=== PATIENT | male | born 1945 | race Caucasian/White ===

== ENCOUNTER 2022-01-20 15:37 | Emergency (ER) | payer MEDICARE, BC, SELFPAY ==
--- NOTE | ~2022-01-20 | CT_ITS ---
EXAMINATION: CT abdomen pelvis w con EXAM DATE: 01/20/2022 20:13 INDICATION: abd pain, constipation, r/o obst/divertic. History of liver transplant. TECHNIQUE: Spiral CT of the abdomen and pelvis was performed following intravenous injection of 100 m L Omnipaque 350. Axial, coronal and sagittal images of the abdomen and pelvis were reviewed. The do se-length product (DLP) for this examination was 1111.69 mGy-cm. The exposure was tailored according to patient size (auto mA exposure control), and iterative reconstruction (ASIR) was used as addition al dose reduction technique. Comparison is made to prior examination from 04/03/2017. FINDINGS: Surgical material surrounding the IVC, reportedly patient has had interval liver transplan t. Previous liver lesion and nodularity no longer present. Liver, spleen, pancreas and adrenal glands are unremarkable. Small nodule of Cholecystectomy.Portal and splenic veins are patent. Kidneys enha nce symmetrically. There is no hydronephrosis. Liver lesions consistent with cysts. There is a 9 mm left mid calyceal stone. Mild prostatomegaly. Small bilateral inguinal fat-containing hernias. The bladder is unremarkable. There is no retroperitoneal or pelvic lymphadenopathy. There is mild scat tered arteriosclerotic disease. The appendix is normal. The stomach and small bowel are unremarkable. There is rectosigmoid colonic fluid and wall edema, mild inflammation in the presacral fat. Appearance is consistent with colitis. No free intraperitoneal gas. The heart is normal in size. There are no pericardial or pleural effu sions. The lung bases are unremarkable. There are no osteoblastic or osteolytic lesions identified. IMPRESSION: 1. Rectosigmoid colonic colitis. Diarrhea. Favor infectious etiology given patent LI and SMA. 2. Surgical changes consistent with interval liver transplant. Reviewed, dictated and finalized at location G. IMPRESSION: 1. Rectosigmoid colonic colitis. Diarrhea. Favor infectious etiology given pat ent LI and SMA. 2. Surgical changes consistent with interval liver transplant.
[2022-01-20 16:05] VITALS: BP 153/77; PULSE 97; RESP 18; TEMP 37.1; O2SAT 99
[2022-01-20 17:55] VITALS: O2SAT 100
[2022-01-20 17:56] VITALS: BP 184/84
[2022-01-20 18:28] LABS: Basophils Percent Auto 0.2 % (0.2-1.2); Hematocrit 46.5 % (42.0-52.0); Immature Granulocyte Absolute 0.06 K/mm3 (0.00-0.031); Immature Granulocyte Percent A 0.4 % (0-0.5); Lymphocytes Absolute Auto 1.65 K/mm3 (0.9-3.2); Lymphocytes Percent Auto 10.1 % (18.3-44.2); Mean Corpuscular HGB Conc 34.4 g/dl (32-36); Mean Corpuscular Hemoglobin 30.7 pg (26-34); Mean Corpuscular Volume 89.1 fl (80-100); Mean Platelet Volume 8.7 fl (7.4-10.4); Monocytes Absolute Auto 0.9 K/mm3 (0.1-0.6); Monocytes Percent Auto 5.5 % (2.6-8.5); Neutrophils Absolute Auto 13.7 K/mm3 (1.3-6.7); Neutrophils Percent Auto 83.8 % (45.5-73.1); Platelet Count Result 220 k/mm3 (150-375); Red Blood Count 5.22 M/mm3 (4.6-6.20); Red Cell Distribution Width 13.2 % (11.5-14.5); White Blood Count 16.3 K/mm3 (4.5-10.0)
[2022-01-20 18:40] LABS: Alanine Aminotransferase 31 U/L (4-50); Albumin Level 5.1 g/dL (3.5-5.1); Alkaline Phosphatase 84 U/L (38-126); Anion Gap 11 mmol/L (8-16); Aspartate Amino Transferase 38 U/L (17-59); Bilirubin,Total 0.5 mg/dL (0.2-1.3); Blood Urea Nitrogen 21 mg/dL (9-20); Calcium 9.8 mg/dL (8.4-10.2); Carbon Dioxide 28 mmol/L (22-30); Chloride 99 mmol/L (98-107); Estimated CRCL calculation 61 ml/min; Estimated Glomerular Filt Rate > 60; Glucose 194 mg/dL (65-110); Lipase 96 U/L (23-300); Potassium 4.6 mmol/L (3.4-5.0); Sodium 138 mmol/L (137-145)
--- NOTE | 2022-01-20 19:26 | ED.ABDPAIN ---
HPI - Abdominal Pain General Chief Complaint: Abdominal Pain Stated Complaint: abd spasms, n/v Time Seen by Provider: 01/20/22 18:48 Source: patient Mode of arrival: ambulatory Limitations: no limitations History of Present Illness HPI narrative: Patient 76-year-old male who presents to the ED with report of constipation and diarrhea. Patient reports he is typically fairly regular with his bowel movements. He does take MiraLAX 3-4 times a week and also occasionally takes stool softeners. His last bowel movement was 2 days ago. This morning, he felt like he had to have a bowel movement, but was unable to pass any stool. He states he attempted to have a bowel movement for approximately 4 hours. He was able to eventually pass a small amount of loose stool, and denied any pain with this. He then had a few episodes of diarrhea. He did notice a few drops of bright red blood in the toilet after straining. No blood in the stool. No melena. He does have a history of internal hemorrhoids years ago. Patient denies any significant abdominal pain but does report having painful 'spasms' in his left-sided abdomen radiating across his lower abdomen. He has not taken anything for the pain. No fever, chills, nausea, vomiting, chest pain, shortness of breath, urinary symptoms, recent sick contacts. Patient has a history of liver transplant. He takes tacrolimus. Related Data Home Medications Medication Instructions Recorded Confirmed aspirin 81 mg tablet,delayed 81 mg PO DAILY 09/26/19 10/17/21 release multivitamin 1 tablet PO DAILY 09/26/19 10/17/21 peg 400-propylene glycol (PF) 0.4 1 drop EACH EYE QID PRN 09/26/19 10/17/21 %-0.3 % eye drops in a dropperette tacrolimus 1 mg capsule, 3 mg PO Q12H cap 03/28/20 10/17/21 immediate-release Allergies Allergy/AdvReac Type Severity Reaction Status Date / Time albuterol Allergy Mild Nervousness Verified 01/20/22 18:14 Review of Systems Review of Systems: CONSTITUTIONAL: Denies fever, chills, or sweats. CARDIOVASCULAR: Denies chest pain. RESPIRATORY: Denies cough or dyspnea. GASTROINTESTINAL: Reports constipation, diarrhea, drops of bright red blood, spasms in L sided abd/across lower abdomen. Denies nausea, vomiting, blood in stool, melena. GENITOURINARY: Denies dysuria or hematuria. MUSCULOSKELETAL: Denies back pain. NEUROLOGIC: Denies headache, numbness, or weakness. All systems reviewed & are unremarkable except as noted in HPI and below PMFSH Past Medical History Medical History (Updated 01/21/22 @ 02:32 by Donna Moreira PA-C) Gastro-esophageal reflux disease without esophagitis Gout Hyperlipidemia Hypertension Hypothyroidism Surgical History Surgical History Status post liver transplantation Family History Family History Sibling Hypertension Patient's brother is in good health Family history of alcoholism Family history of seizure disorder Mother Patient's mother is Father Patient's father is Other Diabetes mellitus Family history of arthritis Family history of cardiovascular disease Family history of kidney disease Social History Social History (Updated 01/21/22 @ 02:25 by Donna Moreira PA-C) Smoking status: Never smoker Second hand tobacco smoke exposure: No Alcohol intake: never Drinks per week: 1 Substance use: never Exam Narrative: GENERAL: Well appearing, well-nourished, non-toxic, in no acute distress. HEAD: Normocephalic, atraumatic. NECK: Supple. No adenopathy, no masses. RESPIRATORY: Airway patent, respirations nonlabored. Clear to auscultation bilaterally, no rales, rhonchi, wheezing. CARDIOVASCULAR: Regular rate and rhythm without murmurs, rubs, or gallops. Peripheral pulses 2+ and equal bilaterally. ABDOMINAL: Soft, mild tenderness to palpation in LUQ, nondistended,
[2022-01-20 20:17] LABS: Add Urine Microscopic? YES; Appearance Urine Clear (Clear); Bacteria Urine Trace /hpf; Bilirubin Urine Negative (Negative); Blood Urine Negative (Negative); Color Urine Yellow (Yellow); Glucose Urine UA Negative (Negative); Ketones Urine Negative (Negative); Leukocyte Esterase Ur Trace LEU/UL (Negative); Mucus Urine Rare /lpf; Nitrate Urine Negative (Negative); Protein Urine Negative (Negative); RBC Urine 0-2 /hpf (0-2); Squamous Epithelial Cell Urine Rare /hpf (Few); Urobilinogen Urine Negative mg/dL (<2.0)
[2022-01-20 21:30] VITALS: BP 176/73; PULSE 78; RESP 16; O2SAT 98
[2022-01-20 21:40] LABS: Lactic Acid Reflex 1.1 mmol/L (0.7-2.1)
[2022-01-20 21:55] VITALS: PULSE 78; RESP 17; O2SAT 99
[2022-01-20 21:56] VITALS: BP 190/83; PULSE 78; RESP 16; O2SAT 99
== END 2022-01-20 22:07 | disposition home or self-care (01) ==
PROVIDERS: Physician Assistant; Emergency Provider Emergency Medicine; PCP Internal Medicine
DX: K52.9 Noninfective gastroenteritis and colitis, unspecified (principal); E78.5 Hyperlipidemia, unspecified; I10 Essential (primary) hypertension; E03.9 Hypothyroidism, unspecified; M10.9 Gout, unspecified; Z94.4 Liver transplant status; Z79.82 Long term (current) use of aspirin
CPT/HCPCS: 36415; 74177; 80053; 81001; 83605; 83690; 85025; 96374; 99284; J0696; Q9967

== ENCOUNTER 2022-04-24 00:23 | Day surgery (SDC) | payer MEDICARE, BC, SELFPAY ==
[2022-04-07 13:48] VITALS: BMI 31.1
--- NOTE | 2022-04-23 13:23 | WPDANESEPPF ---
Anes - Initial Pre Proc Eval Procedure: Operation Date: 04/24/22 08:00 Proposed Procedures p Colonoscopy - Ronny Stewart MD Date/Time: 04/23/22 13:23 Surgeon: Ronny Stewart MD Pre Op Diagnosis: colitis, hx of colon polyps Patient Data Age: 77 Gender: M Height: 1.75 m Weight: 95.5 kg Allergies Allergy/AdvReac Type Severity Reaction Status Date / Time albuterol Allergy Mild Nervousness Verified 04/24/22 06:48 Home Medications Medication Instructions Recorded Confirmed Type aspirin 81 mg tablet,delayed 81 mg PO DAILY 09/26/19 04/24/22 History release (Adult Low Dose Aspirin) multivitamin (Multiple Vitamins 1 tablet PO DAILY 09/26/19 04/24/22 History tablet) peg 400-propylene glycol (PF) 0.4 1 drop ophthalmic (eye) QID PRN 09/26/19 04/24/22 History %-0.3 % eye drops in a dropperette Itching (Systane (PF)) tacrolimus 1 mg capsule, 1 mg PO TID 03/28/20 04/24/22 History immediate-release allopurinol 300 mg tablet 300 mg PO DAILY #90 tabs 10/08/21 04/24/22 Rx ezetimibe 10 mg tablet 10 mg PO DAILY #90 tabs 10/08/21 04/24/22 Rx levothyroxine 112 mcg tablet 112 mcg PO DAILY #90 tabs 10/08/21 04/24/22 Rx lovastatin 20 mg tablet 20 mg PO QPM #90 tabs 10/08/21 04/24/22 Rx nifedipine 60 mg tablet,extended 60 mg PO DAILY #90 tabs 01/07/22 04/24/22 Rx release sodium sul 1.479 gram-potas ch See Rx Instructions PO PER PKG DIR 03/19/22 04/24/22 Rx 0.188 gram-magnes sul 0.225 gram #24 tabs tablet (Sutab) Patient hx anesthesia problems: none Family hx anesthesia problems: none Results Review: All pre-operative results and documents have been reviewed as part of the pre-operative evaluation. [facility] Past Medical History Medical History (Updated 04/23/22 @ 15:02 by Ronny Stewart MD) Abnormal CT scan Constipation Gastro-esophageal reflux disease without esophagitis Gout Hyperlipidemia Hypertension Hypothyroidism Surgical History Surgical History Status post liver transplantation Family History Family History Sibling Hypertension Patient's brother is in good health Family history of alcoholism Family history of seizure disorder Mother Patient's mother is Father Patient's father is Other Diabetes mellitus Family history of arthritis Family history of cardiovascular disease Family history of kidney disease Social History Social History Smoking status: Never smoker Second hand tobacco smoke exposure: No Alcohol intake: current Drinks per week: 14 Substance use: never Living arrangements: alone Spiritual care concerns: No Anes - Eval Final PreProcedure Day of Procedure 04/23/22 13:23 Patient weight: obese Heart: regular rate and rhythm Lungs: clear to auscultation Airway: Mallampati scale class II Neurological: alert and oriented Last oral intake: >/= 8 hours ASA classification: III Emergent: no Anesthetic plan: proceed Anesthesia type and monitoring: general GIVS and standard monitoring Results Review: All pre-operative results and documents have been reviewed as part of the pre-operative evaluation. Informed Consent: The patient's anesthetic plan and its attendant risks and benefits were discussed with the patient/family/POA. Questions were solicited and answers provided to the satisfaction of the patient/family/POA.
--- NOTE | 2022-04-23 15:02 | PM.HPGS ---
History of Present Illness History of Present Illness Consent: Risks, benefits, and alternatives have been discussed and questions answered. Patient agrees to proceed with procedure. Chief complaint: colitis, hx of colon polyps Narrative: Zaki Selby is a 77 year old male Referred for colon cancer screening. He has a history of polyps. Review of Systems Review of Systems: All systems reviewed & are unremarkable except as noted in HPI and below PMFSH Past Medical History Medical History (Updated 04/23/22 @ 15:02 by Ronny Stewart MD) Abnormal CT scan Constipation Gastro-esophageal reflux disease without esophagitis Gout Hyperlipidemia Hypertension Hypothyroidism Surgical History Surgical History Status post liver transplantation Family History Family History Sibling Hypertension Patient's brother is in good health Family history of alcoholism Family history of seizure disorder Mother Patient's mother is Father Patient's father is Other Diabetes mellitus Family history of arthritis Family history of cardiovascular disease Family history of kidney disease Social History Social History Smoking status: Never smoker Second hand tobacco smoke exposure: No Alcohol intake: current Drinks per week: 14 Substance use: never Living arrangements: alone Spiritual care concerns: No Meds Home Medications and Allergies Home Medications Medication Instructions Recorded Confirmed Type aspirin 81 mg tablet,delayed 81 mg PO DAILY 09/26/19 04/24/22 History release (Adult Low Dose Aspirin) multivitamin (Multiple Vitamins 1 tablet PO DAILY 09/26/19 04/24/22 History tablet) peg 400-propylene glycol (PF) 0.4 1 drop ophthalmic (eye) QID PRN 09/26/19 04/24/22 History %-0.3 % eye drops in a dropperette Itching (Systane (PF)) tacrolimus 1 mg capsule, 1 mg PO TID 03/28/20 04/24/22 History immediate-release allopurinol 300 mg tablet 300 mg PO DAILY #90 tabs 10/08/21 04/24/22 Rx ezetimibe 10 mg tablet 10 mg PO DAILY #90 tabs 10/08/21 04/24/22 Rx levothyroxine 112 mcg tablet 112 mcg PO DAILY #90 tabs 12/07/21 06/23/22 Rx lovastatin 20 mg tablet 20 mg PO QPM #90 tabs 10/08/21 04/24/22 Rx nifedipine 60 mg tablet,extended 60 mg PO DAILY #90 tabs 01/07/22 04/24/22 Rx release sodium sul 1.479 gram-potas ch See Rx Instructions PO PER PKG DIR 03/19/22 04/24/22 Rx 0.188 gram-magnes sul 0.225 gram #24 tabs tablet (Sutab) Allergies Allergy/AdvReac Type Severity Reaction Status Date / Time albuterol Allergy Mild Nervousness Verified 04/24/22 06:48 Exam Resp: Auscultation: clear to auscultation bilaterally Cardio: Rate: regular rate Rhythm: regular rhythm GI: GI Palp: Yes Soft to palpation and No Tenderness to palpation present (GI) Assessment and Plan Assessment and plan (1) Colon cancer screening: Code(s): Z12.11 - Encounter for screening for malignant neoplasm of colon Status: Acute Assessment and Plan: Colonoscopy with possible biopsy or polypectomy or cautery or injection of substances.
[2022-04-24 06:49] VITALS: BP 173/83; PULSE 67; RESP 16; TEMP 36.3; O2SAT 99
[2022-04-24] MEDS: LACTATED RINGERS 1,000 ML 150 ML IV CONT (07:01)
[2022-04-24 08:16] VITALS: BP 125/74; PULSE 60; RESP 18; O2SAT 97
[2022-04-24 08:26] VITALS: BP 132/78; PULSE 61; RESP 15; O2SAT 98
[2022-04-24 08:36] VITALS: BP 137/81; PULSE 61; RESP 20; O2SAT 100
== END 2022-04-24 08:44 | disposition home or self-care (01) ==
PROVIDERS: PCP Internal Medicine; Visit Provider Internal Medicine Gastroenterology
PROC: 0DJD8ZZ Inspection of Lower Intestinal Tract, Via Natural or Artificial Opening Endoscopic (ICD-10-PCS; CPT 45378; principal; 2022-04-24 08:00)
DX: Z12.11 Encounter for screening for malignant neoplasm of colon (principal); K57.30 Diverticulosis of large intestine without perforation or abscess without bleeding; K21.9 Gastro-esophageal reflux disease without esophagitis; Z86.010 Personal history of colon polyps; Z87.19 Personal history of other diseases of the digestive system; M10.9 Gout, unspecified; E78.5 Hyperlipidemia, unspecified; E03.9 Hypothyroidism, unspecified; I10 Essential (primary) hypertension; Z94.4 Liver transplant status; Z79.82 Long term (current) use of aspirin; E66.9 Obesity, unspecified; Z68.31 Body mass index [BMI] 31.0-31.9, adult
CPT/HCPCS: G0105; J2704; J7120

== ENCOUNTER 2023-04-13 12:25 | Outpatient (CLI) | payer MEDICARE, BC, SELFPAY ==
--- NOTE | 2023-04-13 12:39 | ECG_ITS ---
Measurements Intervals [employer] Rate: 65 P: -10 MO: 290 QRS: -8 QRSD: 89 T: 16 QT: 391 QTc: 407 Interpretive Statements SINUS RHYTHM WITH FIRST DEGREE AV BLOCK BASELINE ARTIFACT BORDERLINE ECG NO PREVIOUS ECG AVAILABLE FOR COMPARISON Electronically Signed On 04-13-2023 17:14:53 CDT by Bruce Truong M.D.
[2023-04-13 13:24] LABS: Prothrombin Time 13.3 Seconds (11.1-14.7)
== END 2023-04-13 12:26 | disposition home or self-care (01) ==
PROVIDERS: PCP Internal Medicine; Visit Provider Urology
DX: Z01.812 Encounter for preprocedural laboratory examination (principal); N20.0 Calculus of kidney; I10 Essential (primary) hypertension; I44.0 Atrioventricular block, first degree
CPT/HCPCS: 36415; 85610; 85730; 87086; 93005

== ENCOUNTER 2023-04-17 00:43 | Day surgery (SDC) | payer MEDICARE, BC, SELFPAY ==
[2023-04-10 12:30] VITALS: BMI 30.8
--- NOTE | 2023-04-10 12:57 | PC.NURSE ---
Report to the Outpatient Waiting Room, entrance under the green pavilion located off [facility], at time __6:00AM on date ___04/17/23____. Planned Procedure Time: _7:30AM . Time changes happen often and if your time is changed the preop area will call you the afternoon before. - You and your visitor will be asked to self-screen and do not enter if you have any COVID symptoms. - A mask is optional within the hospital at this time. Patients may have clear liquids (water, carbonated beverages, clear teas, apple juice) until 3 hours prior to surgery with a maximum of 20 ounces. - No food from midnight until time of surgery. Take the following medications with a SIP of water the morning of surgery: _LEVOTHYROXINE, NIFEDIPINE, TACROLIMUS AND HYDROCODONE IS NEEDED. DO NOT STOP ANY OF YOUR OTHER PRESCRIPTION MEDICATIONS PRIOR TO SURGERY ?EXCEPT THE FOLLOWING Medications to discontinue per physician __HOLD ASPIRIN 7 DAYS PRE-OP Date to take last dose___04/10/23 Please no make-up, nail bermudian, hairspray, perfume, deodorant, or body powder the day of surgery. No jewelry (including any body piercings) or valuables the day of surgery, leave them at home. Please take a shower or bath the night before, or the morning of, surgery with an antibacterial soap. Wear comfortable, loose fitting clothing. Children are encouraged to wear pajamas. - Jewelry must be removed prior to entering the operating room. Rings and piercings that are not removed may be cut off. - The hospital will not accept responsibility for valuables. - Please leave all valuables, including medications, at home the day of surgery. If you are going home after surgery, a licensed transporter driver must drive you home. - NO public transportation without another adult if you receive anesthesia. - We recommend that an adult stay with you for 24 hours following discharge. - We also recommend that you do not drive, make important decision, drink alcoholic beverages, or take any drugs that were not prescribed by your health care provider for at least 24 hours after your discharge time. Follow any additional instructions given to you from your surgeon. If you or anyone in your household have experienced Covid symptoms in the past week, please notify your surgeon or the nurse liaison at the phone number below for possible testing. Telephone instructions given to __PATIENT and asked if any additional questions and then verbalized understanding. Patient advised to call surgeon office or pre surgery nurse liaison [phone] if any additional questions.
[2023-04-17] VITALS (10 sets, daily range): BP systolic 107–155; BP diastolic 55–76; PULSE 64–83; RESP 10–18; TEMP 36.4–36.7; O2SAT 94–100
--- NOTE | ~2023-04-17 | XR_ITS ---
EXAMINATION: XR abdomen/kub 1V INDICATION: Left urolithiasis TECHNIQUE: Supine views of the abdomen were obtained on 2 radiographs. COMPARISON: 04/08/2023 FINDINGS: A left internal ureteral stent is in expected position. There is a 10 mm stone adjacent to the proximal aspect of the stent at the level of the left L3 transverse process. There is a 2 mm ston e right kidney. No additional urolithiasis is identified. 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 IMPRESSION: 1. Left internal ureteral stent in expected position with 10 mm stone adjacent to the proximal stent. 2. Right nephrolithiasis. Reviewed, dictated and finalized at location A.
--- NOTE | 2023-04-17 06:32 | WPDANESEPPF ---
Anes - Initial Pre Proc Eval Procedure: Operation Date: 04/17/23 07:30 Proposed Procedures p Left Extracorporeal Shock Wave Lithotripsy - Huang Nichols MD Date/Time: 04/17/23 06:32 Surgeon: Huang Nichols MD Pre Op Diagnosis: Nephrolithiasis, Lt Kidney Stone Patient Data Age: 78 Gender: M Height: 1.73 m Weight: 92 kg Allergies Allergy/AdvReac Type Severity Reaction Status Date / Time albuterol AdvReac Mild Nervousness Verified 04/17/23 06:22 Home Medications Medication Instructions Recorded Confirmed Type aspirin 81 mg tablet,delayed 81 mg PO DAILY 09/26/19 04/17/23 History release (Adult Low Dose Aspirin) multivitamin (Multiple Vitamins 1 tablet PO DAILY 09/26/19 04/17/23 History tablet) peg 400-propylene glycol (PF) 0.4 1 drop ophthalmic (eye) QID PRN 09/26/19 04/17/23 History %-0.3 % eye drops in a dropperette Itching (Systane (PF)) tacrolimus 1 mg capsule, 3 mg PO DAILY 03/28/20 04/17/23 History immediate-release ezetimibe 10 mg tablet 10 mg PO DAILY #90 tabs 03/27/23 04/17/23 Rx lovastatin 20 mg tablet 20 mg PO QPM #90 tabs 03/27/23 04/17/23 Rx metformin 500 mg tablet,extended 500 mg PO BID #60 tabs 04/03/23 04/17/23 Rx release 24 hr hydrocodone 5 mg-acetaminophen 325 1 tablet PO Q6H PRN pain #12 tabs 04/09/23 04/17/23 Rx mg tablet levothyroxine 112 mcg tablet 112 mcg PO QAM 04/10/23 04/17/23 History nifedipine 60 mg tablet,extended 60 mg PO QAM 04/10/23 04/17/23 History release Patient hx anesthesia problems: none Family hx anesthesia problems: none Results Review: All pre-operative results and documents have been reviewed as part of the pre-operative evaluation. [facility] Past Medical History Medical History Abnormal CT scan Cholecystitis Constipation DM2 (diabetes mellitus, type 2) Gastro-esophageal reflux disease without esophagitis Gout Hyperlipidemia Hypertension Hypothyroidism Surgical History Surgical History H/O cataract extraction Hx of cholecystectomy S/P blepharoplasty Status post liver transplantation Family History Family History Sibling Hypertension Patient's brother is in good health Family history of alcoholism Family history of seizure disorder Mother Patient's mother is Father Patient's father is Other Diabetes mellitus Family history of arthritis Family history of cardiovascular disease Family history of kidney disease Social History Social History Social History: the patient lives with his and has 2 children. 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 He does not smoke or drink or use illicit drugs. His is the durable power commercial litigation attorney for healthcare. Code status full code Smoking status: Never smoker Second hand tobacco smoke exposure: No Alcohol intake: current Drinks per week: 1 Substance use: never Substance use type: painkillers Lack of Transportation: No Lack of Food: Never True Current Housing: Decline to Answer Concerned About Future Housing: Decline to Answer Difficulty Paying Gas/Electric Bills: Decline to Answer Difficulty Paying for Meds: Decline to Answer Currently Unemployed: Decline to Answer Education: Don't Know Difficulty w/ Childcare or Family Care: Decline to Answer Living arrangements: with family Additional living arrangements comments: Spiritual care concerns: No Anes - Eval Final PreProcedure Day of Procedure 04/17/23 06:32 Patient weight: obese Heart: regular rate and rhythm Lungs: clear to auscultation Airway: Mallampati scale class II Neurological: alert and oriented Last oral intake: >/= 8
[2023-04-17] MEDS: LACTATED RINGERS 1,000 ML 30 ML IV CONT ×2 (06:56→08:41)
[2023-04-17 06:59] LABS: Glucose Point of Care 139 mg/dl (65-105)
--- NOTE | 2023-04-17 07:14 | WPDHPUPDATE1 ---
History and Physical Update Update Date/Time: 04/17/23 07:14 History and Physical has been reviewed, including an updated exam of the patient. There are NO changes in the patient's condition. Risks, benefits, and alternatives have been discussed and questions answered. Patient agrees to proceed with procedure. Proceed with left ureteral eswl
[2023-04-17] MEDS: ceFAZolin 2 GM/D5W 50 ML 2 GM/50 ML BAG IVPB (07:33)
--- NOTE | 2023-04-17 08:19 | W.PM.PROC2 ---
Procedure Note - Detailed Date of Procedure 04/17/23 Pre-op Diagnosis Nephrolithiasis, Lt Kidney Stone Post-op Diagnosis Same Procedure Performed Lithotripsy of left proximal ureteral /UPJ stone Surgeon Huang Nichols MD Anesthesia General Description of Procedure Patient is taken to the operative suite correctly identified. Once anesthesia was obtained the stone was localized in both planes. Three thousand shocks were given the stone. Patient tolerated procedure well without complications taken recovery stable condition. It does appear to be somewhat of a harder stone. Will have to see how he does postoperatively. Patient is taken recovery stable condition. This completes sedation. Please send a copy of my office Estimated Blood Loss 0 Drains No Packing No Pathology None sent Complications No immediate complications Condition Stable Disposition PACU
[2023-04-17 08:45] LABS: Glucose Point of Care 133 mg/dl (65-105)
== END 2023-04-17 11:25 | disposition home or self-care (01) ==
PROVIDERS: PCP Internal Medicine; Visit Provider Urology
PROC: (CPT 50590; principal; 2023-04-17 07:30)
DX: N20.1 Calculus of ureter (principal); E11.9 Type 2 diabetes mellitus without complications; I10 Essential (primary) hypertension; E03.9 Hypothyroidism, unspecified; M10.9 Gout, unspecified; K21.9 Gastro-esophageal reflux disease without esophagitis; Z94.4 Liver transplant status; Z79.82 Long term (current) use of aspirin; Z79.621 Long term (current) use of calcineurin inhibitor; Z79.84 Long term (current) use of oral hypoglycemic drugs; Z79.891 Long term (current) use of opiate analgesic; E66.9 Obesity, unspecified; Z68.30 Body mass index [BMI] 30.0-30.9, adult
CPT/HCPCS: 50590; 74018; 82948; J0690; J1100; J2405; J2704; J3010; J7120

== ENCOUNTER 2023-04-22 10:17 | Outpatient (CLI) | payer MEDICARE, BC, SELFPAY ==
--- NOTE | ~2023-04-22 | XR_ITS ---
XR abdomen/kub 1V 04/22/2023 10:36 Indication: Left ureteral stone Procedure: KUB Comparison: 04/17/2023 Findings: Bowel gas pattern nonobstructive. There is a left internal ureteral stent in expected posit ion. There is a persistent 12 mm stone in the proximal aspect of the left ureter at the L3 level [place] to the stent. No acute osseous abnormality. No foreign bodies. There is osteoarthritis of the hi ps. Impression: 1: Left ureteral stone at the L3 level measuring 12 mm. Reviewed, dictated and finalized at location [] Impression: 1: Left ureteral stone at the L3 level measuring 12 mm.
== END 2023-04-22 10:18 | disposition home or self-care (01) ==
PROVIDERS: PCP Internal Medicine; Visit Provider Urology
DX: N20.1 Calculus of ureter (principal)
CPT/HCPCS: 74018

== ENCOUNTER 2023-04-24 00:38 | Day surgery (SDC) | payer MEDICARE, BC, SELFPAY ==
--- NOTE | 2023-04-23 15:56 | PC.NURSE ---
Report to the Outpatient Waiting Room, entrance under the green pavilion located off [facility], at time __1130 on date _04/24/23 . Planned Procedure Time: _1330 . Time changes happen often and if your time is changed the preop area will call you the afternoon before. - You and your visitor will be asked to self-screen and do not enter if you have any COVID symptoms. - A mask is optional within the hospital at this time. Patients may have clear liquids (water, carbonated beverages, clear teas, apple juice) until 3 hours prior to surgery with a maximum of 20 ounces. - No food from midnight until time of surgery - Infants may have breast milk until 4 hours before surgery, infant formula 6 hours prior to surgery. - Children will be allowed to drink immediately following surgery. If applicable, please bring a bottle or sippy cup to assist with drinking. Juice, water, soda, and popsicles are readily available. For infants on formula, please bring formula the day of surgery. Pacifiers are allowed. Take the following medications with a SIP of water the morning of surgery: ___LEVOTHYROXINE, ,NIFEDIPINE_,TACROLIMUS,HYDROCODONE IF NEEDED DO NOT STOP ANY OF YOUR OTHER PRESCRIPTION MEDICATIONS PRIOR TO SURGERY ?EXCEPT THE FOLLOWING Medications to discontinue per physician PT STATES HAS NOT HAD ASPIRIN FOR SEVERAL WKS Date to take last dose Please no make-up, nail togolese, hairspray, perfume, deodorant, or body powder the day of surgery. No jewelry (including any body piercings) or valuables the day of surgery, leave them at home. Please take a shower or bath the night before, or the morning of, surgery with an antibacterial soap. Wear comfortable, loose fitting clothing. Children are encouraged to wear pajamas. - Jewelry must be removed prior to entering the operating room. Rings and piercings that are not removed may be cut off. - The hospital will not accept responsibility for valuables. - Please leave all valuables, including medications, at home the day of surgery. If you are going home after surgery, a licensed compressed air pile driver operator must drive you home. - NO public transportation without another adult if you receive anesthesia. - We recommend that an adult stay with you for 24 hours following discharge. - We also recommend that you do not drive, make important decision, drink alcoholic beverages, or take any drugs that were not prescribed by your health care provider for at least 24 hours after your discharge time. For Pediatric surgeries, we recommend two adults accompany the child home. Follow any additional instructions given to you from your surgeon. If you or anyone in your household have experienced Covid symptoms in the past week, please notify your surgeon or the nurse liaison at the phone number below for possible testing. Telephone instructions given to ___PATIENT and asked if any additional questions and then verbalized understanding. Patient advised to call surgeon office or pre surgery nurse liaison [phone] if any additional questions.
[2023-04-23 16:07] VITALS: BMI 29.2
[2023-04-24] VITALS (8 sets, daily range): BP systolic 130–175; BP diastolic 51–84; PULSE 18–77; RESP 13–68; TEMP 36.7–36.9; O2SAT 92–99; BMI 29.5
--- NOTE | ~2023-04-24 | XR_ITS ---
EXAMINATION: XR retrograde pyelo w/stent LT DATE: 04/24/2023 16:10 CDT INDICATION: L side special w/ stone extraction, stent placement . TECHNIQUE: 4 fluoroscopic images of the abdomen and pelvis were obtained during left retrograde pyelo graphy with stone extraction and stent placement performed by the surgeon. I was not present in the o perating room. Fluoroscopy exposure time was 14.1 seconds. DAP [id number] mGym2. COMPARISON: X-ray abdomen 04/22/2023 FINDINGS: A left nephroureteral stent is present in the copier field service technician view. The stent is removed, followed by wire acce ss to the upper collecting system. Stent replacement, in good position. IMPRESSION: Fluoroscopic documentation of left retrograde pyelography with stone extraction and stent placement. Please refer to the operative note for complete procedural details . Reviewed, dictated and finalized at location K. IMPRESSION: Fluoroscopic documentation of left retrograde pyelography with stone extraction and stent placement. Please refer to the operative note for complete procedura l details .
[2023-04-24] MEDS: LACTATED RINGERS 1,000 ML 30 ML IV CONT (12:30)
--- NOTE | 2023-04-24 12:45 | SUR.PREOP ---
1245- Patient and family notified of delayed start time. All questions and concerns answered.
[2023-04-24 13:00] LABS: Glucose Point of Care 130 mg/dl (65-105)
--- NOTE | 2023-04-24 14:07 | WPDANESEPPF ---
Anes - Initial Pre Proc Eval Procedure: Operation Date: 04/24/23 13:30 Proposed Procedures p Cystoscopy, Left Retrograde Pyelogram, Possible Left Stone Extraction, Possible Left Stent Placement, Possible Holmium Laser Procedure - Huang Nichols MD Date/Time: 04/24/23 14:07 Surgeon: Huang Nichols MD Pre Op Diagnosis: left renal stone Patient Data Age: 78 Gender: M Height: 1.73 m Weight: 87.9 kg Last Vital Signs Temp 36.7 C 04/24/23 11:40 Pulse 18 L 04/24/23 11:40 Resp 68 H 04/24/23 11:40 BP 147/53 H 04/24/23 11:40 Pulse Ox 98 04/24/23 11:40 O2 Del Method Room Air 04/24/23 11:40 Allergies Allergy/AdvReac Type Severity Reaction Status Date / Time No Known Allergies Allergy Verified 04/24/23 13:05 Home Medications Medication Instructions Recorded Confirmed Type aspirin 81 mg tablet,delayed 81 mg PO DAILY 09/26/19 04/23/23 History release (Adult Low Dose Aspirin) multivitamin (Multiple Vitamins 1 tablet PO DAILY 09/26/19 04/24/23 History tablet) peg 400-propylene glycol (PF) 0.4 1 drop ophthalmic (eye) PRN PRN 09/26/19 04/23/23 History %-0.3 % eye drops in a dropperette Itching (Systane (PF)) tacrolimus 1 mg capsule, 3 mg PO DAILY 03/28/20 04/23/23 History immediate-release ezetimibe 10 mg tablet 10 mg PO DAILY #90 tabs 03/27/23 04/23/23 Rx lovastatin 20 mg tablet 20 mg PO QPM #90 tabs 03/27/23 04/23/23 Rx metformin 500 mg tablet,extended 500 mg PO BID #60 tabs 04/03/23 04/23/23 Rx release 24 hr hydrocodone 5 mg-acetaminophen 325 1 tablet PO Q6H PRN pain #12 tabs 04/09/23 04/24/23 Rx mg tablet levothyroxine 112 mcg tablet 112 mcg PO QAM 04/10/23 04/23/23 History nifedipine 60 mg tablet,extended 60 mg PO QAM 04/10/23 04/23/23 History release acetaminophen 500 mg capsule 500 mg PO Q6H PRN Pain 04/23/23 04/23/23 History mirabegron 25 mg tablet,extended 25 mg PO DAILY 04/23/23 04/23/23 History release 24 hr (Myrbetriq) Laboratory Tests 04/24/23 12:54 POC Capillary Glucose 130 H mg/dl (65-105) Patient hx anesthesia problems: none Family hx anesthesia problems: none Results Review: All pre-operative results and documents have been reviewed as part of the pre-operative evaluation. [facility] Past Medical History Medical History Abnormal CT scan Cholecystitis Constipation DM2 (diabetes mellitus, type 2) Gastro-esophageal reflux disease without esophagitis Gout Hyperlipidemia Hypertension Hypothyroidism Surgical History Surgical History H/O cataract extraction Hx of cholecystectomy S/P blepharoplasty Status post liver transplantation Family History Family History Sibling Hypertension Patient's brother is in good health Family history of alcoholism Family history of seizure disorder Mother Patient's mother is Father Patient's father is Other Diabetes mellitus Family history of arthritis Family history of cardiovascular disease Family history of kidney disease Social History Social History Social History: the patient lives with his and has 2 children. The patient retired from the [employer] he worked for the [employer]. He does not smoke or drink or use illicit drugs. 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 Code status full code Smoking status: Never smoker Second hand tobacco smoke exposure: No Alcohol intake: current Drinks per week: 1 Substance use: never Substance use type: painkillers Lack of Transportation: No Lack of Food: Never True Current Housing: Decline to Answer Concerned About Future Housing: Decline to Answer Difficulty Paying Gas/Electric Bills:
--- NOTE | 2023-04-24 14:23 | WPDHPUPDATE1 ---
History and Physical Update Update Date/Time: 04/24/23 14:23 History and Physical has been reviewed, including an updated exam of the patient. There are NO changes in the patient's condition. Risks, benefits, and alternatives have been discussed and questions answered. Patient agrees to proceed with procedure. Proceed with cystoscopy, left retrograde pyelogram, left ureteroscopy with holmium laser, stone extraction, possible stent exchange
--- NOTE | 2023-04-24 14:46 | SUR.PREOP ---
1601- Call to Dr. Jamison patient requesting pain medication. Per Dr. Jamison can given 25MCG fentanyl IVP and can repeat dose once if needed.
[2023-04-24] MEDS: fentaNYL CITRATE INJ (*CRX) 100 MCG/2 ML VIAL 25 MCG IV PUSH ×3 (14:55→17:20)
[2023-04-24] MEDS: ceFAZolin 2 GM/D5W 50 ML 2 GM/50 ML BAG IVPB (16:17)
--- NOTE | 2023-04-24 16:46 | P.OP_ITS ---
Procedure Note - Detailed Date of Procedure 04/24/23 Pre-op Diagnosis left ureteral stone 1 cm Post-op Diagnosis Same Procedure Performed Cystoscopy, left retrograde pyelogram, left ureteroscopy with holmium laser, stone extraction, left stent exchange 4.8 Marshallese contour Surgeon Huang Nichols MD Anesthesia General Description of Procedure Patient is taken to the operative suite correctly identified. Once anesthesia was obtained was placed in dorsal lithotomy position and prepped and draped usual sterile fashion. Twenty-two Marshallese scope inserted the bladder no tumors noted. The left ureteral stent was visualized. Was brought out the meatus but a could not pass a wire through it. A guidewire was then passed by the stone in the proximal ureter. Ureteral access sheath was placed mini flexible ureteral scope was inserted into the orifice. Stone was visualized. Using a 200 micron fiber the stone was fragmented in multiple small pieces. The largest of which were retrieved and sent for analysis. Reinspection revealed no residual stones in the ureter. Pyelogram was then performed to confirm placement of the stent. 4.8 Marshallese contour stent was placed with the proximal end coiled in the left renal pelvis and the distal in the bladder. Bladder was drained. 2% viscous lidocaine was inserted into urethra patient is taken recovery stable condition. Will follow-up in 7-10 days for a stent removal in the office with cysto. this complete dictation. please send a copy to my office Drains Yes Packing No Pathology Yes Complications No immediate complications Condition Stable Disposition PACU
[2023-04-24] MEDS: hydrALAZINE HCL 20 MG/ML VIAL 5 MG IV PUSH (17:27)
[2023-04-24] MEDS: oxyCODONE HCL (*CRX) 5 MG TAB IR PO (18:09)
== END 2023-04-24 18:59 | disposition home or self-care (01) ==
PROVIDERS: PCP Internal Medicine; Visit Provider Urology
PROC: (CPT 52352; principal; 2023-04-24 13:30)
DX: N20.1 Calculus of ureter (principal); I10 Essential (primary) hypertension; E78.5 Hyperlipidemia, unspecified; E11.9 Type 2 diabetes mellitus without complications; M10.9 Gout, unspecified; E03.9 Hypothyroidism, unspecified; K21.9 Gastro-esophageal reflux disease without esophagitis; Z94.4 Liver transplant status; Z79.82 Long term (current) use of aspirin; Z79.84 Long term (current) use of oral hypoglycemic drugs
CPT/HCPCS: 52356; 74420; 82365; 82948; 88300; A9270; C1769; C1894; C2617; J0360; J0690; J1100; J2405; J2704; J3010; J7120; Q9966

== ENCOUNTER 2023-04-29 09:57 | Outpatient (CLI) | payer MEDICARE, BC, SELFPAY ==
--- NOTE | ~2023-04-29 | XR_ITS ---
EXAMINATION: XR abdomen/kub 1V INDICATION: Left ureteral stone TECHNIQUE: Supine views of the abdomen were obtained on 2 radiographs. COMPARISON: 04/22/2023 FINDINGS: A left internal ureteral stent is in expected position. There appears to been interval maritza tment of the previously described stone adjacent to the internal ureteral stent. Stone fragments nayan uring up to 6 mm are seen in the left kidney lower pole. The bowel gas pattern is normal. 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 IMPRESSION: 1. Interval treatment of the previously described left ureteral stone with stone fragments seen in th e left kidney lower pole. Reviewed, dictated and finalized at location [] IMPRESSION: 1. Interval treatment of the previously described left ureteral stone with ston e fragments seen in the left kidney lower pole.
== END 2023-04-29 09:58 | disposition home or self-care (01) ==
PROVIDERS: PCP Internal Medicine; Visit Provider Urology
DX: N20.1 Calculus of ureter (principal)
CPT/HCPCS: 74018

== ENCOUNTER 2023-12-23 11:19 | Outpatient (CLI) | payer MEDICARE, BC, SELFPAY ==
--- NOTE | ~2023-12-23 | XR_ITS ---
Supine and upright views of the abdomen Clinical history: Kidney stone COMPARISON: 04/21/2023 Findings: Bowel gas pattern is nonspecific. No evidence for obstruction or free air. Left renal stone s are similar to prior exam. Osseous structures are intact. Impression: Stable left renal stones. Reviewed, dictated and finalized at [facility]. SERVICES SPECIALIST Impression: Stable left renal stones.
== END 2023-12-23 11:20 | disposition home or self-care (01) ==
PROVIDERS: PCP Internal Medicine; Visit Provider Urology
DX: N20.0 Calculus of kidney (principal)
CPT/HCPCS: 74018

== ENCOUNTER 2025-05-08 14:10 | Outpatient (CLI) | payer MEDICARE, BC, SELFPAY ==
--- NOTE | ~2025-05-08 | XR_ITS ---
Lumbosacral Spine: AP and lateral views Clinical History: Pain Findings: The normal lordotic curve is maintained. The vertebral bodies and posterior elements are i ntact. There is mild degenerative disc change at L4-L5 and L5-S1. There is mild to moderate facet art hropathy at these levels. The sacroiliac joints are normally outlined. Probable 13 mm left lower alexis e renal stone. Impression: Otyt-zl-kcwdywts degenerative change of the lower lumbar spine, as above. Probable left nephrolithiasis, as above. Reviewed, dictated and finalized at location M. Impression: Pzlf-uc-stiprffx degenerative change of the lower lumbar spine, as above. Probable left nephrolithiasis, as above.
--- OUTSIDE RECORDS SUMMARY | 2025-05-08 14:17 | XMS_ITS | Clinical Summary ---
Author Organization [facility] Address [address], [facility] [address] [place] [address] Phone Care Team Providers Care Corporate Securities Research Analyst Name Role Phone DanialSonnyIssa L DO Primary Care Provider Barry Walsh DO Unavailable Medications polyethylene glycol (MIRALAX) Powder Use entire 255g bottle with 64oz of clear liquid as directed for colonoscopy prep. 255 g 0 7 Active Immunizations Immunization Administration Dates Next Due Covid-19, Mrna, Lnp-s, Pf, 30 Mcg/0.3 Ml Dose (P fizer) 01/14/2021,12/23/2020 Social History Tobacco Use Types Packs/Day Years Used Date Smoking Tobacco: Never Assessed Sex and Gender Information Value Date Recorded Sex Assigned at Not on file Legal Sex Male 8:53 PM CDT Gender Identity Not on file Sexual Orientation Not on file Plan of Treatment Health Maintenance Due Date Last Done Comments Hepatitis C Virus (HCV) Screening 1945 TdaP Immunization 1945 Zoster Immunization (2 of 3) 07/26/2008 05/31/2008 Respiratory Syncytial Virus (RSV) Immunization (Adult) (1 - 1-dose 75+ series) 2018 Pneumococcal Immunization (5 0+ years) (2 of 2 - PPSV23) 07/16/2021 07/16/2020 SARS-COV-2 Immunization (4 - 2024-25 season) 2024 06/20/2021, 01/14/2021, 12/23/2020 Influenza Immunization (#1) 2025 07/13/2020 DTaP/Tdap/Td Immunization Discontinued 10/16/2008 Hepatitis B Immunization Aged Out 10/16/2008 No longer eligible based on patient's age to complete this topic Pneumococcal Immunization Combined Discontinued 07/16/2020 Human Papillomavirus (HPV) Immunization Aged Out No longer eligible based on patient's age to complete this topic Meningococcal Immunization (ACWY) Aged Out No longer eligible based on patient's age to complete this topic Rotavirus Immunization Aged Out No lo nger eligible based on patient's age to complete this topic Insurance MEDICARE [facility] Care Teams Corporate Securities Research Analyst Relationship Specialty Start Date End Date Issa Barrow DO [address] [place] [address] PCP - General Internal Medicine 01/12/17 Barry Walsh DO [address] [place] [address] Consulting Physician Gastroenterology 12/24/17
--- OUTSIDE RECORDS SUMMARY | 2025-05-08 14:17 | XMS_ITS | Clinical Summary ---
Author Organization [facility] Address [address] [place] [address] Care Team Providers Care Acid Strength Inspector Name Role Phone Unavailable Primary Care Provider Unavailabl e Social History Tobacco Use Types Packs/Day Years Used Date Smoking Tobacco: Never Assessed Sex and Gender Information Value Date Recorded Sex Assigned at Not on file Legal Sex Male 5:36 PM CDT Gender Identity Not on file Sexual Orientation Not on file Plan of Treatment Health Maintenance Due Date Last Done Comments DTaP, Tdap and Td Vaccines ( 1 - Tdap) 1962 Pneumococcal Vaccine: 50+ Ye ars (1 of 1 - PCV) 1993 Zoster Vaccines (1 of 2) 1993 RSV Immunization or 60+ Years (1 - 1-dose 75+ series) 2018 COVID-19 Vaccine ( - 2023-2 5 season) 2024 Meningococcal B Vaccine Aged Out No l onger eligible based on patient's age to complete this topic Meningococcal Vaccine Aged Out No katerin verito eligible based on patient's age to complete this topic RSV Immunizations Under 20 Months Aged Out No longer eligible based on patient's age to complete this topic
== END 2025-05-08 14:11 | disposition home or self-care (01) ==
PROVIDERS: PCP Internal Medicine; Visit Provider Internal Medicine
DX: M51.369 Other intervertebral disc degeneration, lumbar region without mention of lumbar back pain or lower extremity pain (principal); M51.379 Other intervertebral disc degeneration, lumbosacral region without mention of lumbar back pain or lower extremity pain
CPT/HCPCS: 72100

== ENCOUNTER 2025-05-22 09:03 | Outpatient (CLI) | payer MEDICARE, BC, SELFPAY ==
--- NOTE | ~2025-05-22 | MR_ITS ---
EXAMINATION: MR lumbar spine wo con DATE: 05/22/2025 09:42 INDICATION: Spondylosis without myelopathy or radiculopathy TECHNIQUE: Magnetic resonance imaging (MRI) of the lumbar spine was performed without intravenous con trast. Sequences included sagittal T2-weighted FSE, sagittal T2-weighted FS FSE, sagittal T1-weighted FSE, and axial T2-weighted FSE. COMPARISON: None FINDINGS: Alignment is normal. Vertebral body heights are normal. Small Schmorl's node along the anterior super ior endplate of L4. Moderate disc height loss with fibrofatty degenerative endplate changes at L5-S1. Marrow signal is otherwise unremarkable. Mild disc height loss at T11-T12. Mild disc desiccation wit hout significant disc height loss at L1-L2 through L4-L5. The conus medullaris terminates at L1. Ther e is normal signal in the caudal spinal cord. Couple T2 hyperintense left renal cysts, the larger par tially visualized measuring at least 4.8 cm. Paravertebral soft tissues are unremarkable. The followi ng disc levels are specifically discussed: T12-L1: The disc does not extend beyond the endplate margin. There is mild left and moderate right fa cet joint osteoarthritis. There is no neural foraminal stenosis. There is no central canal stenosis. L1-L2: Disc is mildly bulging. There is mild bilateral facet joint osteoarthritis. There is mild bila teral neural foraminal stenosis. There is mild central canal stenosis. L2-L3: Disc is mildly bulging. There is hypertrophy of the ligamentum flavum. There is mild bilatera l facet joint osteoarthritis. There is mild bilateral neural foraminal stenosis. There is mild centra l canal stenosis. L3-L4: Disc is bulging. There is hypertrophy of the ligamentum flavum. There is mild bilateral facet joint osteoarthritis. There is mild bilateral neural foraminal stenosis. There is mild central canal stenosis. L4-L5: Disc is bulging with left foraminal zone annular fissure. There is hypertrophy of the ligament um flavum. There is mild left and moderate right facet joint osteoarthritis. There is mild bilateral neural foraminal stenosis. There is mild central canal stenosis. L5-S1: Disc is bulging with annular fissure. There is mild bilateral facet joint osteoarthritis. Ther e is mild bilateral neural foraminal stenosis. There is minimal central canal stenosis. IMPRESSION: 1. Mild to moderate lumbar spondylosis. Reviewed, dictated and finalized at location A.
== END 2025-05-22 09:04 | disposition home or self-care (01) ==
LOC: GOSHIMG 09:03
PROVIDERS: PCP Internal Medicine; Visit Provider Nurse Practitioner Adult Health
DX: M47.816 Spondylosis without myelopathy or radiculopathy, lumbar region (principal); M48.061 Spinal stenosis, lumbar region without neurogenic claudication; M54.9 Dorsalgia, unspecified
CPT/HCPCS: 72148

== ENCOUNTER 2025-06-16 13:42 | Outpatient (CLI) | payer MEDICARE, BC, SELFPAY ==
--- NOTE | ~2025-06-16 | XR_ITS ---
EXAM: XR abdomen/kub 1V DATE: 06/16/2025 14:06 HISTORY: Calcium kidney stone . COMPARISON: None available. FINDINGS: Clear lung bases. Surgical clips in the right upper quadrant. Normal bowel gas pattern. No organomegaly. Cluster of calcifications over the left lower pole measuring up to 10 mm. Mild lumbar degenerative disc disease. Bilateral hip osteoarthritis. Scattered pelvic enthesopathy. IMPRESSION: Left nephrolithiasis. Reviewed, dictated and finalized at location K. IMPRESSION: Left nephrolithiasis.
--- NOTE | ~2025-06-16 | CT_ITS ---
Non-contrast CT scan of the Abdomen and Pelvis Clinical indication: Kidney stone Technique: 2.5 mm axial scans were obtained through the abdomen and pelvis without intravenous or or al contrast. Dose reduction technique was used on this scan by utilizing automated exposure control a nd iterative reconstruction technique. The dose-length product (DLP) was 303.33 mGy-cm. COMPARISON: 04/08/2023 Findings: Images through the lung bases reveal no abnormalities. Right kidney unremarkable. There are nonobstructing left renal stones, largest at the lower pole nayan uring 11 mm in diameter. Multiple left renal cysts are present. No ureteral stone or hydronephrosis o n either side. Possible micronodular contour of liver. The spleen, pancreas, gallbladder, and adrenals appear normal . There is no aortic aneurysm. There is no evidence of bowel obstruction. Images through the pelvis were performed. There is no evidence of ascites or lymphadenopathy. Urinary bladder unremarkable. Prostate gland mildly enlarged. Impression: Nonobstructing left nephrolithiasis, as detailed above. Multiple left renal cysts. Questionable minimal cirrhotic change of the liver. Correlate clinically and with LFTs. Reviewed, dictated and finalized at [facility]. Impression: Nonobstructing left nephrolithiasis, as detailed above. Multiple left renal cys ts. Questionable minimal cirrhotic change of the liver. Correlate clinically and wi LFTs.
--- OUTSIDE RECORDS SUMMARY | 2025-06-16 13:47 | XMS_ITS | Encounter Summary ---
Author Organization [facility] Address [address] [place] [address] Care Team Providers Care Supervisor Dials Name Role Phone Issa Barrow MD Primary Care Provider [phone] Ruthie Quintanilla RN Unavailable [phone] Kiah Esquivel MD Unavailable [phone] Leyda Clay RN Unavailable Dorina Gayle Unavailable Unavailable Naheed Ulrich RN Unavailable Tequila Ibarra RN Unavailable Unav ailable Pramod Slaughter DO Primary Care Provider [phone] Encounter Details Date Type Department Care Team (Late st Contact Info) Description 11/09/2018 Documentation [facility] [address] [place] [address] Sara Gonzales RN Social History Tobacco Use Types Packs/Day Years Used Date Smoking Tobacco: Never Smokeless Tobacco: Never Alcohol Use Standard Drinks/Week Comments No 0 (1 standard drink = 0.6 oz pur e alcohol) Sex and Gender Information Value Date Recorded Sex Assigned at Not on file Legal Sex Male 6:43 AM GREEN END MAN Gender Identity Male 06/21/2021 8:36 AM CDT Sexual Orientation Straight 02/16/2020 5: 30 PM CDT documented as of this encounter Plan of Treatment Not on file documented as of this encounter Visit Diagnoses Not on filedocumented in this encounter Care Teams Supervisor Dials Relationship Specialty Start Date End Date Issa Barrow MD [address] [place] [address] PCP - General 03/16/18 03/16/25 Pramod Slaughter DO [address] [facility] [address] [place] [address] PCP - General Internal Medicine 03/17/25 Ruthie Quintanilla, CHARLY [address] [address] Overhead Foreman 07/06/18 Kiah Esquivel MD [address] [address] Referring Physician Gastroenterology 01/20/19 Leyda Clay RN [address] [id number] Overhead Foreman 02/22/19 Dorina Gayle Primary Oiler Bander Transplant 04/16/21 Naheed Ulrich, CHARLY Overhead Foreman Transplant 11/18/1908/13 Tequila Ibarra, senior category managerOverhead Foreman Overhead Foreman 08/13/21 documented as of this encounter
--- OUTSIDE RECORDS SUMMARY | 2025-06-16 13:47 | XMS_ITS ---
Author Organization [facility] Address [address] [place] [address] Care Team Providers Care Conservation Science Teacher Name Role Phone Kiah Esquivel MD Unavailable [phone] Dorina Gayle Unavailable Unavailable Tequila Ibarra RN Unavailable Unav ailable Pramod Slaughter DO Primary Care Provider [phone] Transplant Episode Liver Recipient [facility] ([place], [place]) - [facility] Organ Received: Liver Transplanted on 02/21/2019 Marked as Active Follow-up on 02/21/2019 Reason: Transplanted at [facility] Liver CoordinatorTequila Ibarra RN Phone: N/A Fax: N/A Email: N/A 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 Liver ([place]) Donor Information Organ ABO Source Meets Risk Criteria HLA Match Mismatches Cross Match Liver Transplanted A1 DBD No A: B: DR: Liver Donor Serology Results Anti-CMV CMV IgG: Positive EBV IgG EBV VCA IgG: Positive Anti-HBcAb HBC Total: Negative HBsAg HBsAg: Negative HBV DNA No results on file Anti-HCV HCV: Negative Anti-HIV I/II No results on file Anti-HTLV I/II HTLV: Not Done RPR/VDRL RPR: Negative EBV IgM EBV VCA IgM: Negative HBsAb HBsAb: Not Done EBNA No results on file Toxoplasma No results on file SARS CoV-2 No results on file Care Team Name Role Phone Fax Email Tequila Ibarra, CHARLY Liver Coordinator N/A N /A N/A Shani Berger RD Dietitian N/A N/A N/A Kiah Esquivel MD Referring Physician [phone] N/A Yuridia Cifuentes [employer] Torque Tester [phone] N/A N/A Events Post-Transplant Pre-Transplant Admitted: 2019 Referred: 07/01/2018 Transplanted: 02/21/2019 Evaluation began: 8 Discharged: 02/25/2019 Committee: 08/10/2018 Center waitlisted: 8
--- OUTSIDE RECORDS SUMMARY | 2025-06-16 13:47 | XMS_ITS | Clinical Summary ---
Author Organization [facility] Address [address], [facility] [address] [place] [address] Phone Care Team Providers Care Salesperson Jewelry Name Role Phone DanialSonnyIssa L DO Primary Care Provider [phone] Barry Walsh DO Unavailable [phone] Medications polyethylene glycol (MIRALAX) Powder Use entire [...] (5 0+ years) (2 of 2 - PCV20 or PCV21) 07/16/2021 07/16/2020 SARS-COV-2 Immunization (4 - season) 2024 06/20/2021, 01/14/2021, 12/23/2020 Influenza Immunization [...] age to complete this topic Insurance MEDICARE [facility] Care Teams Salesperson Jewelry Relationship Specialty Start Date End Date Issa Barrow DO [address] [place] [address] PCP - General Internal Medicine 01/12/17 Barry Walsh DO [address] [place] [address] Consulting Physician Gastroenterology 12/24/17
--- OUTSIDE RECORDS SUMMARY | 2025-06-16 13:47 | XMS_ITS | Clinical Summary ---
Author Organization [facility] Address [address] Attn: Epic Prelude ADT [place] [address] Care Team Providers Care Shredding Specialist Name Role Phone Unavailable Primary Care Provider Unavailabl e Allergies No known active allergies Medications empagliflozin (Jardiance) 10 mg tablet Take 1 Tablet (10 mg) by mouth daily in the morning. 90 Tablet 1 3 Active HYDROcodone-jules taminophen (NORCO) 5-325 mg tablet TAKE 1 OR 2 TABLETS BY MOUTH EVERY 6 HOURS NEEDED 30 Tablet 04/14/2023 4:50 PM CDT 3 Active traMADoL (ULTRAM) 50 mg tablet TAKE 1 TABLET BY MOUTH EVERY 6 HOURS FOR PAIN 20 Tablet 04/25/2023 9:41 AM CDT 3 Active clobetasoL (TEMOVATE) 0.05 % Ointment Apply to rash areas on leg twice daily for 4 weeks for flares, then use twice a week for maintenance (no face) 30 Gram 1 08/26/2023 2:20 PM CDT 3 Active tamsulosin (FLOMAX) 0.4 mg capsule Take 1 Capsule (0.4 mg) by mouth daily. 30 Capsule 12/17/2023 3:33 PM GARMENT STEAMER 4 Active imiquimod (ALDARA) 5 % Cream in Packet APPLY A THIN LAYER TO THE SCALP AT BEDTIME FOR 2 WEEKS, THEN TAKE A 2 WEEK BREAK. APPLY FOR 2 MORE WEEKS AT BEDTIME, THEN STOP. WASH OFF IN THE MORNING; RED/SCABBY REACTION IS NORMAL) 24 Packet 05/20/2024 5:38 PM CDT 4 Active azithromycin (ZITHROMAX) 250 mg tablet Take 2 tablets (500 mg) by mouth today (day 1), then take 1 tablet (250 mg) for 4 days (days 2-5). 6 Tablet 09/08/2024 5:04 PM GARMENT STEAMER 4 Active benzonatate (TESSALON) 200 mg capsule Take 1 Capsule (200 mg) by mouth 3 times daily as needed cough 30 Capsule 11/03/2024 3:00 PM GARMENT STEAMER 5 Active famotidine (PEPCID) 20 mg tablet Take 1 Tablet (20 mg) by mouth daily. 90 Tablet 1 04/03/2025 6:15 PM CDT 5 Active metFORMIN (GLUCOPHAGE XR) 500 mg Extended Release 24 hour tablet Take 1 Tablet (500 mg) by mouth 2 times daily. 180 Tablet 3 04/11/2025 2:36 PM CDT 5 Active ezetimibe (ZETIA) 10 mg tablet Take 1 Tablet (10 mg) by mouth daily. 90 Tablet 3 04/11/2025 2:36 PM CDT 5 Active levothyroxine 125 mcg tablet Take 1 Tablet (125 mcg) by mouth daily. 90 Tablet 3 04/11/2025 2:36 PM CDT 5 Active lovastatin (MEVACOR) 20 mg tablet Take 1 tablet by mouth every evening 90 Tablet 3 04/11/2025 2:36 PM CDT 5 Active NIFEdipine (ADALAT CC) 60 mg Extended Release tablet Take 1 Tablet (60 mg) by mouth daily in the morning. 90 Tablet 3 04/11/2025 2:36 PM CDT 5 Active Encounters Date Type Department Care Team Description 06/07/2025 External Device Data [facility] ABSTRACTION Provider, Abstract from Last 3 Months Social History Tobacco Use Types Packs/Day Years Used Date Smoking Tobacco: Never Assessed Sex and Gender Information Value Date Recorded Sex Assigned at Not on file Legal Sex Male 9:58 PM CDT Gender Identity Not on file Sexual Orientation Not on file Plan of Treatment Health Maintenance Due Date Last Done Comments DTAP/TDAP/TD VACCINES (1 - Tdap) 1962 PNEUMOCOCCAL VACCINE 50+ YEARS (1 of 1 - PCV) 02/20/19 93 ZOSTER VACCINE (1 of 2) 1993 RSV VACCINE (60+ or ) (1 - 1-dose 75+ series) 2018 INFLUENZA VACCINE (#1) 2025 Insurance RX [employer] (INTERNAL) [facility] Medicare Part D
--- OUTSIDE RECORDS SUMMARY | 2025-06-16 13:47 | XMS_ITS | Encounter Summary ---
Author Organization [facility] Address [address] [place] [address] Phone Care Team Providers Care Government Contracts Manager Name Role Phone Kiah Esquivel MD Primary Care Provid er Issa Barrow MD Primary Care Provider [phone] Ruthie Quintanilla RN Unavailable [phone] Kiah Esquivel MD Unavailable [phone] Leyda Clay RN Unavailable [phone] Dorina Gayle Unavailable Unavailable Naheed Ulrich RN Unavailable Tequila Ibarra RN Unavailable Unav ailable Pramod Slaughter DO Primary Care Provider [phone] Encounter Details Date Type Department Care Team (Latest Contact Info) Description 03/15/2018 Orders Only [facility] Scanning, Provider Social History Tobacco Use Types Packs/Day Years Used Date Smoking Tobacco: Never Sex and Gender Information Value Date Recorded Sex Assigned at Not on file Legal Sex Male 6:43 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 Gender Identity Male 06/21/2021 8:36 AM CDT Sexual Orientation Straight 02/16/2020 5: 30 PM CDT documented as of this encounter Plan of Treatment Not on file documented as of this encounter Procedures Procedure Name Priority Date/Time Associated Diagnosis Comments PROCEDURE - RESULT 03/15/2018 documented in this encounter Results * PROCEDURE - RESULT (03/15/2018) us Provider Scanning Final Result documented in this encounter Visit Diagnoses Not on filedocumented in this encounter Care Teams Government Contracts Manager Relationship Specialty Start Date End Date Kiah Esquivel MD PCP - General 03/10/18 03/15/18 Issa Barrow MD [address] [place], [place] [id number] PCP - General 03/16/18 03/16/25 Pramod Slaughter DO [address] [place], [place] [id number] PCP - General Internal Medicine 03/17/25 Ruthie Quintanilla, CHARLY [address] [place] [address] Truck Mechanic Apprentice 07/06/18 Kiah Esquivel MD [address] [place] [address] Referring Physician Gastroenterology 01/20/19 Leyda Clay, CHARLY [address] [place] [address] Truck Mechanic Apprentice 02/22/19 Dorina Gayle Primary Transplant Immunologist Transplant 04/16/21 Naheed Ulrich, CHARLY Truck Mechanic Apprentice Transplant 11/18/1908/13 Tequila Ibarra, mold moverTruck Mechanic Apprentice Truck Mechanic Apprentice 08/13/21 documented as of this encounter
--- OUTSIDE RECORDS SUMMARY | 2025-06-16 13:47 | XMS_ITS ---
Author Organization [facility] Address [address] [place] [address] Care Team Providers Care Meat Specialist Name Role Phone Kiah Esquivel MD Unavailable [phone] Dorina Gayle Unavailable Unavailable Tequila Ibarra RN Unavailable Unav ailable Pramod Slaughter DO Primary Care Provider [phone] Active Problems Patient Care Coordination No te Formatting of this note migh t be different from the original. [facility] will service your home health needs. Please contact Freya at [phone], his RN is named Ester Acevedo Labs: [facility] [address] [place] [address] Timeframe orders are good for: 6 months Last orders sent to lab on: 725-NS CBC w/diff, CMP, GGT, and Tacrolimus sent every 2 wks Knobber: Dr. Beatrice Cantu, [facility] PCP - Dr. Sukhjinder Medrano#[phone] Problem Noted Date Diagnosed Date Encounter for long-term (cur rent) use of high-risk medication 03/25/2023 Liver transplant recipient 02/14/2019 Assessment & Plan (03/29/2025 8:25 AM CDT): 1. Mr. 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 He is 5 years out from transplant with excellent allograft function and without evidence of rejection. I did not make any changes to his immunosuppression. He will continue with labs q3 months. Given history of skin cancer, can consider decreasing tac dose with next set of labs. 2. History of hepatocellular carcinoma - Surveillance imaging 2022 and 2023 reveals LR 3 lesion in hepatic segment 4B. MRI today pending. Will obtain AFP with next set of labs He will return to clinic in 2 years. Assessment & Plan (03/30/2024 8:26 AM CDT): 1. Mr. 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 He is 5 years out from transplant with excellent allograft function and without evidence of rejection. I will make no changes to patient's immunosuppression. 2. History of hepatocellular carcinoma - Surveillance imaging 03/25/2023 reveals LR 3 lesion in hepatic segment 4B. Follow up imaging 09/2023 reveals LR3 lesion in hepatic segment 8 and the 4B lesion was not seen. AFP lab 10/30/2023 reveals 4.7. MRI today pending. AFP lab order placed for [facility] with next set of labs. Follow up in 1 year. Routine labs every 3 months. Assessment & Plan (02/25/2019 9:41 AM CDT): Requiring high doses of steroids postoperatively. Liver transplant on 02/21 Assessment & Plan (02/24/2019 4:25 PM CDT): Requiring high doses of steroids postoperatively. Liver transplant on 02/21 Assessment & Plan (02/23/2019 10:58 AM CDT): Requiring high doses of steroids postoperatively. Liver transplant on 02/21 Assessment & Plan (02/22/2019 1:54 PM CDT): Requiring high doses of steroids postoperatively. Liver transplant on 02/21 Hyperlipemia 07/13/2018 Gout 07/13/2018 Hypothyroid 07/13/2018 Assessment & Plan (02/25/2019 9:41 AM CDT): Continue home levothyroxine 112 daily Assessment & Plan (02/24/2019 4:25 PM CDT): Continue home levothyroxine 112 daily Assessment & Plan (02/23/2019 10:58 AM CDT): Continue home levothyroxine 112 daily Assessment & Plan (02/22/2019 2:10 PM CDT): Continue home levothyroxine 112 daily Obesity with body mass index 30 or greater 12/31 Hepatocellular carcinoma Current Treatment and Therapy Plans No current plan information found. Past Treatment and Therapy Plans No past plan information found. Lifetime Dose Tracking * Chemical Lifetime Dose Automatic Entry Manual Entr y doxorubicin 90.67 mg/m2 (200 mg) 90.67 mg/m2 (200 mg) 0 mg/m2 (0 mg) Fluoro Time 60.9 minutes 60.9 minutes 0 minutes doxorubicin isotoxic equivalent (Please manually verify calculation) 90.67 mg/m2 (200 mg) 90.67 mg/m2 (200 mg) 0 mg/m2 (0 mg) Air kerma at the reference point (Ka,r) 2,829 mGy 2,343 mGy 486 mGy DLP 1,134 mGycm 1,134 mGycm 0 mGycm Resolved Problems Problem Noted Date Diagnosed Date Resolved Date Steroid-induced hyperglycemia 02/22/2019 03/25/2023 Assessment & Plan (02/25/2019 9:41 AM CDT): On high dose steriods s/p liver transplant 02/22. No pre-existing diabetes. Plan for steroids: Prednisone 80 daily Prednisone 40 daily on 02/24 Prednisone 20 daily on 02/25-02/28 Prednisone 15 mg daily on 03/01 Recommendations - Discontinue NPH and humalog - plan to discharge on tradjenta 5 mg daily and a low dose correctional slide - hematology nurse educator planning to help teach BS checks and low dose sliding scale - discussed that he may be able to come off the tradjenta and slide and would re-evaluate this in 2-4 weeks. Assessment & Plan (02/24/2019 4:24 PM CDT): On high dose steriods s/p liver transplant 02/22. No pre-existing diabetes. Plan for steroids: Prednisone 80 daily Prednisone 40 daily on 02/24 Prednisone 20 daily on 02/25 Recommendations - Would discontinue NPH - Give humalog 6 units with meals today 02/24 and then would discontinue starting tomorrow 02/25 - we will see how he does on just correctional mid dose slide tomorrow as his prednisone goes to 20 mg - can consider adding tradjenta if he is hyperglycemia on Pred 20 or less. Assessment & Plan (02/23/2019 10:58 AM CDT): On high dose steriods s/p liver transplant 02/22. No pre-existing diabetes. Plan for steroids: Prednisone 80 daily Prednisone 40 daily Prednisone 20 for 2 weeks Recommendations - Decrease NPH to 8 units q8hrs given decreasing prednisone dose - mid dose slide q4hrs - will see how his blood sugars are at lunch and add mealtime insulin if needed. Assessment & Plan (02/22/2019 2:10 PM CDT): On high dose steriods s/p liver transplant 02/22. No pre-existing diabetes. Plan for steroids: Prednisone 80 daily Prednisone 40 daily Prednisone 20 for 2 weeks On insulin gtt at 6-7 u/hr but expect less insulin as postoperative stress and steroid amounts decrease. Recommendations - conservative dose of NPH 15 units q8hrs - high dose slide q4hrs - if he becomes hyperglycemic, turn on insulin gtt and will escalate NPH dose Positive cardiac stress test 08/04/2018 03/25/2023 Assessment & Plan (08/04/2018 10:23 AM CDT): -pt undergoing evaluation for liver txp, underwent DSE which revealed apical hypokinesis with stress -s/p LHC yesterday without significant CAD -did well overnight, access sites clean and dry -cont lovastatin and zetia -anticipate discharge home today Portal hypertension (CMS/HCC) 12/31/2017 03/25/2023 Hepatic cirrhosis (CMS/HCC) 06/11/2017 03/19/2022 LAMBERT (nonalcoholic steatohepatitis) 06/11/2017 03/19/2022 Abnormal finding on imaging 04/21/2017 03/25/2023 Cirrhosis (CMS/HCC) 03/19/20 Pre-transplant evaluation fo r liver transplant 03/13/2021
--- OUTSIDE RECORDS SUMMARY | 2025-06-16 13:47 | XMS_ITS | Clinical Summary ---
Author Organization [facility] Address [address] [place] [address] Care Team Providers Care Principal Gifts Officer Name Role Phone Kiah Esquivel MD Unavailable [phone] Dorina Gayle Unavailable Unavailable Tequila Ibarra RN Unavailable Unav ailable Pramod Slaughter DO Primary Care Provider [phone] Allergies No known active allergies Medications multivitamin capsuleIndication s:Vitamin Deficiency Prevention Take 1 capsule by mouth daily with lunch Active peg 400-propylene glycol (SYSTANE) 0.4-0.3 % ophthalmic solutionIndicatio ns:Dry Eye Administer 1 drop into both eyes as needed Active ezetimibe (ZETIA) 10 mg tablet Take 1 tablet (10 mg total) by mouth daily 9 Active levothyroxine (SYNTHROID) 112 mcg tablet Take 1 tablet (112 mcg total) by mouth boot liner maker before breakfast 9 Active lovastatin (MEVACOR) 20 mg tablet Take 1 tablet (20 mg total) by mouth nightly 9 Active NIFEdipine (PROCARDIA XL/ADALAT CC) 60 mg 24 hr tabletIndications :Liver transplant recipient (HCC),Essential hypertension Take 1 tablet (60 mg total) by mouth daily Next refill to come from Primary Care Doctor 30 tablet 1 0 Active metFORMIN XR (GLUCOPHAGE XR) 500 mg 24 hr tablet 1 tablet (500 mg total) 2 (two) times a day 3 Active tacrolimus 1 mg immediate-release capsuleIndication s:Liver transplant recipient (HCC) Take 2 capsules (2 mg total) by mouth every morning AND 1 capsule (1 mg total) nightly. 270 capsule 3 4 09/06/20 25 Active Active Problems Patient Care Coordination No te Formatting of this note migh t be different from the original. [facility] will service your home health needs. Please contact Freya at [phone], his RN is named Ester Sims. Labs: [facility] [address] [place] [address] Timeframe orders are good for: 6 months Last orders sent to lab on: 05.02.25- CBC w/diff, CMP, GGT, and Tacrolimus sent every 2 wks [employer] C[employer] Farmer: Dr. Beatrice Cantu, [facility] PCP - Dr. Sukhjinder Medrano#[phone] Problem Noted Date Diagnosed Date Encounter for [...] index 30 or greater 12/31 Hepatocellular carcinoma Resolved Problems Problem Noted Date Diagnosed Date [...] and a low dose correctional slide - breastfeeding educator planning to help teach BS checks [...] Pre-transplant evaluation fo r liver transplant 03/13/2021 Encounters Date Type Department Care Team Description 05/03/2025 Orders Only [facility] [address] [facility] Advanced Medicine [address]th [place] [address] [place] [address] Frank Goodwin MD 05/02/2025 Orders Only [facility] [address] [facility] Advanced Medicine 12th [place] [address] [place] [address] Boston Velasquez MD 05/02/2025 Telephone [facility] [address] [facility] [address] Mailstop 90-52-8 [place] [address] AydeeElvia saez 05/02/2025 Documentation [facility] [address] [facility] [address] Mailstop 90[address]298 [place] [address] Tequila Ibarra RN 04/25/2025 Orders Only [facility] [address] [facility] [address] [id number] [place] [address] Tequila Ibarra RN 04/25/2025 Documentation [facility] [address] [facility] [address] Mailstop 38-25-2 [place] [address] Tequila Ibarra, CHARLY 04/06/2025 Documentation [facility] [address] [facility] [address] Mailstop [phone] [place] [address] Tequila Ibarra, CHARLY 03/31/2025 Documentation [facility] [address] [facility] [address] Mailop -30-0 [place] [address] Gloria Hassan 03/31/2025 Telephone [facility] [address] [facility] [address] Mailstop -[address] [place] [address] Gloria Hassan 03/31/2025 Telephone [facility] [address] [facility] [address] Mailstop -49-6 [place] [address] Tequila Ibarra RN 03/31/2025 Documentation [facility] [address] [facility] [address] [facility]3 [place] [address] Tequila Ibarra RN 03/29/2025 8:35 AM CDT - 03/29/2025 11:[address] [facility] [address] [place] [address] Frank Goodwin MD Lesion of liver; Liver transplant recipient (HCC) Discharge Disposition: Discharge to home or self care 03/29/2025 8:30 AM CDT Office Visit [facility] [address] [place] [address] for Advanced Medicine 12th [place] [address] [place] [address] Mary Merino NP Liver transplant recipient (HCC) (Primary Dx) 03/29/2025 Results Follow-Up [facility] [address] [facility] [address] Mailstop [id number] [place] [address] Tequila Ibarra, RN MRI Abdomen Liver W WO Contrast from Last 3 Months Immunizations Immunization Administration Dates Next Due COVID-19 mRNA (PFIZER) 0.3 m L (30 mcg) vaccine (12 years and up) 08/27/2023 Influenza, Trivalent, High D ose, Split, Preservative Free, Intramuscular 11/09/2018 Influenza, Unspecified 08/03/2024,08/27/2023,09/2022 Pfizer SARS-CoV-2 Monovalent Vaccination (12+ Yrs) PURPLE 08/20/2022,06/20/2021,01/14/2021,12/23 Pneumococcal Conjugate Pcv20 08/03/2024 Sars-CoV-2, Unspecified 08/03/2024,01/28/2022 ZOSTER Recombinant 01/28/2022 Surgical History Surgery Date Site/Laterality Comments [place] UNLISTED PROCEDURE COLON Colon Surgery - - perforation after colonoscopy (Added by TW Conv) LUMBAR DISCECTOMY Ant Spinal Diskect Osteophytect Lumb Interspace Microdiscect - (Added by TW Conv) CATARACT EXTRACTION Cataract Surgery - (Added by TW Conv) EYE SURGERY Eye Surgery - (Added by TW Conv) FOOT SURGERY Foot Surgery - (Added by TW Conv) [place] COLONOSCOPY FLX DX W/SUNI J SPEC WHEN PFRMD Colonoscopy (Fiberoptic) - - s/p 3 colonoscopies with last in 2011 with 3 polyps removed. Repeat scheduled 07/02/17 (Added by TW Conv) US GUIDED BIOPSY LIVER 06/25/2018 N/A EMBOLIZATION ORGAN ISCHEMIA OR INFARCTION 09/13/2018 N/A EMBOLIZATION ORGAN ISCHEMIA OR INFARCTION 11/08/2018 N/A Medical History Medical History Date Comments History of colonic polyps Histor y of colon polyps - (Added by TW Conv) Cirrhosis (HCC) GERD (gastroesophageal reflux disease) Gout LAMBERT (nonalcoholic steatohepatitis) HLD (hyperlipidemia) Squamous cell skin cancer Thyroid disease Heart murmur Hepatic cirrhosis (HCC) 06/11/2017 Family History Medical History Relation Name Comments Hypertension Brother 1 Family history of hypertension - (Added by TW Conv) Alcohol abuse Brother 2 Family history of alcoholism - (Added by TW Conv) Heart attack Brother 3 Family history of myocardial infarction - (Added by TW Conv) Heart disease Brother 3 Brain cancer Father Family history of malignant neoplasm of brain - (Added by TW Conv) Heart disease Father Hypertension Father Family history of hypertension - (Added by TW Conv) Liver disease Father Family history of liver disease - (Added by TW Conv) Heart disease Mother Hypertension Sister 1 Family history of hypertension - (Added by TW Conv) Diabetes Sister 2 Family history of diabetes mellitus - (Added by TW Conv) Anesthesia problems Neg Hx Relation Name Status Comments Brother 1 Brother 2 Brother 3 Father Mother Sister 1 Sister 2 Social History Tobacco Use Types Packs/Day Years Used Date Smoking Tobacco: Never Smokeless Tobacco: Never Tobacco Cessation:Counseling Given: Not Answered Alcohol Use Standard Drinks/Week Comments No 0 (1 standard drink = 0.6 oz pur e alcohol) Sex and Gender Information Value Date Recorded Sex Assigned at Not on file 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 Gender Identity Male 06/21/2021 8:36 AM CDT Sexual Orientation Straight 02/16/2020 5: 30 PM CDT Obstetrics History Last Filed Vital Signs Vital Sign Reading Time Taken Comments Blood Pressure 143/74 03/29/2025 7:48 AM CDT Pulse 68 03/29/2025 7:48 AM CDT Temperature 36.6 C (97.8 F) 03/29/2025 7:48 AM CDT Respiratory Rate 18 02/25/2019 7:21 AM CDT Oxygen Saturation 96% 02/25/2019 7:21 AM CDT Inhaled Oxygen Concentration - - Weight 90.5 kg (199 lb 9.6 oz) 03/29/2025 7:48 AM CDT Height 175.3 cm (5' 9) 03/29/2025 7:48 AM CDT Body Mass Index 29.48 03/29/2025 7:48 AM CDT Plan of Treatment Health Maintenance Due Date Last Done Comments Depression Screening 1945 Fall Risk Assessment 1945 Well Visit 65+ 02/21/2008 DTaP/Tdap/Td Vaccine (1 - Tdap) 10/17/2008 8 Zoster Vaccine (2 of 2) 03/25/2022 01/28/2022, 05/31 Covid-19 Vaccine (8 - Pfizer risk season) 2025 08/03/2024, 08/27/2023, 08/20/2022, Additional history exists Influenza Vaccine (#1) 2025 , 08/27/2023, 08/12/2022, Additional history exists Pneumococcal vaccine 65+ Completed 024, 07/17/2021, 07/16/2020 Medical Devices Implanted Type Area Belt Picker Device Identifier Shelf Expiration Date Model / Serial / Lot [employer] [id number] Lc Bead Vial 100-300um Particles 2ml Embolization Yellow - [id number] Implanted:Qty: 1 on 09/13/2018 at [facility] [employer] [id number] VE 220GS / / Selligy [id number] Embosphere Prefill Saline Syringe Compressible Nonaggregate - [id number] Implanted:Qty: 1 on 09/13/2018 at [facility] [employer] 06/01/2021 [id number] / / [id number] [employer] [id number] Angio-Seal Vip Bondek-Plus 6fr .035in 70cm Hemostatic Latex Free - [id number] Implanted:Qty: 1 on 09/13/2018 at [facility] [employer] 07/02/2019 [id number] / / [id number] [employer] [id number] Lc Bead Vial 100-300um Particles 2ml Embolization Yellow - [id number] Implanted:Qty: 1 on 11/08/2018 at [facility] [employer] [id number] 03/01/2021 VE 220GS / / [id number] [employer] [id number] Angio-Seal Vip Bondek-Plus 6fr .035in 70cm Hemostatic Latex Free - [id number] Implanted:Qty: 1 on 11/08/2018 at [facility] [employer] 08/01/2019 [id number] / / [id number] Procedures Procedure Name Priority Date/Time Associated Diagnosis Comments TACROLIMUS, HIGHLY SENSITIVE, LC/MS/MS Routine 05/03/2025 12:00 AM CDT COMPREHENSIVE METABOLIC PANEL Routine 05/03/2025 12:00 AM CDT GAMMA GT Routine 05/03/2025 12:00 AM CDT CBC WITH AUTO DIFFERENTIAL Routine 05/03/2025 12:00 AM CDT COPY(IES) SENT TO: Routine 05/03/2025 12 :00 AM CDT [id number], TUMOR MARKER Routine 05/02/2025 12:00 AM CDT COPY(IES) SENT TO: Routine 05/02/2025 12 :00 AM CDT MRI ABDOMEN LIVER W WO CONTRAST Schedule Routine, Read Routine (OP Routine) 03/29/2025 11:01 AM CDT Lesion of liver Liver transplant recipient (HCC) from Last 3 Months Results * (ABNORMAL) Tacrolimus, Highly Sensitive, LC/MS/MS (05/03/2025 12:00 AM CDT) Tacrolimus, Highly Sensitive, LC/MS/MS 4.5(L) mcg/L [facility] Comment: No definitive therapeutic or toxic ranges have been established. Optimal blood drug levels are influenced by type of transplant, patient response, time post- transplant, co-administration of other drugs, and drug formulation. The following trough range is a suggested guideline: 5.0-20.0 mcg/L. 05/03/2025 05/03/2025 10: 06 AM CDT us Frank Goodwin MD LAB BLOOD ORDERABLES F inal Result [facility] [address] [place] [address] * COPY(IES) SENT TO: (05/03/2025 12:00 AM CDT) COPY(IES) SENT TO: [facility] Comment: [facility] LIVER - COPY TO [facility] [address] [place] [address] 05/03/2025 05/03/2025 10: 06 AM CDT Frank Goodwin MD LAB BLOOD ORDERABLES F inal Result [facility] * (ABNORMAL) CBC with auto differential (05/03/2025 12:00 AM CDT) WBC 7.9 3.8 - 10.8 Thousand/u L [facility] RBC, POC 4.94 4.20 - 5.80 Million/uL [facility] Hgb 14.5 13.2 - 17.1 g/dL [facility] Hct 45.8 38.5 - 50.0 % [facility] MCV 92.7 80.0 - 100.0 fL [facility] MCH 29.4 27.0 - 33.0 pg [facility] MCHC 31.7(L) 32.0 - 36.0 g/dL [facility] Comment: For adults, a slight decrease in the calculated MCHC value (in the range of 30 to 32 g/dL) is most likely not clinically significant; however, it should be interpreted with caution in correlation with other red cell parameters and the patient's clinical condition. Rdw 13.1 11.0 - 15.0 % [facility] Platelets 191 140 - 400 Thousand/u L [facility] MPV 9.1 7.5 - 12.5 fL [facility] Neutrophils, abs 4,803 1,500 - 7,800 cells/uL [facility] Lymphocytes, abs 2,291 850 - 3,900 cells/uL [facility] Monocyte abs 679 200 - 950 cells/uL [facility] Eosinophils, abs 87 15 - 500 cells/uL [facility] Basophils, abs 40 0 - 200 cells/uL [facility] Neutrophils 60.8 % [facility] Lymphocyte pct 29.0 % [facility] Monocytes 8.6 % [facility] Eosinophils 1.1 % [facility] Basophils 0.5 % [facility] 05/03/2025 05/03/2025 10: 06 AM CDT Frank Goodwin MD LAB BLOOD ORDERABLES F inal Result Performing Organization Address [facility] Co de Phone Number [facility] [address] [place] [address] * Gamma GT (05/03/2025 12:00 AM CDT) Pathologist [facility] GGT 12 3 - 70 U/L [facility] 05/03/2025 05/03/2025 10: 06 AM CDT Frank Goodwin MD LAB BLOOD ORDERABLES F inal Result Performing Organization Address [facility] de Phone Number [facility] [address] [place] [address] * (ABNORMAL) Comprehensive metabolic panel (05/03/2025 12:00 AM CDT) Glucose 129(H) 65 - 99 mg/dL [facility] Comment: Fasting reference interval For someone without known diabetes, a glucose value >125 mg/dL indicates that they may have diabetes and this should be confirmed with a follow-up test. BUN 20 7 - 25 mg/dL [facility] Creatinine 0.98 0.70 - 1.22 mg/dL [facility] eGFR 77 > OR = 60 mL/min/1.7 3m2 [facility] BUN/creat ratio SEE NOTE: 6 - 22 (calc) [facility] Comment: Not Reported: BUN and Creatinine are within reference range. Sodium 138 135 - 146 mmol/L [facility] Potassium, pl 4.7 3.5 - 5.3 mmol/L [facility] Chloride 100 98 - 110 mmol/L [facility] CO2 31 20 - 32 mmol/L [facility] Calcium 10.2 8.6 - 10.3 mg/dL [facility] Protein, sr 7.0 6.1 - 8.1 g/dL [facility] Albumin 4.6 3.6 - 5.1 g/dL [facility] GLOBULIN 2.4 1.9 - 3.7 g/dL (calc) [facility] Alb/glob ratio 1.9 1.0 - 2.5 (calc) [facility] Bilirubin, total 0.5 0.2 - 1.2 mg/dL [facility] Alk phos 43 35 - 144 U/L [facility] AST 14 10 - 35 U/L [facility] ALT (SGPT) 16 9 - 46 U/L [facility] 05/03/2025 05/03/2025 10: 06 AM CDT Frank Goodwin MD LAB BLOOD ORDERABLES F inal Result Performing Organization Address City/[facility]/ZIP Co de Phone Number [facility] [address] [place] [address] * COPY(IES) SENT TO: (05/02/2025 12:00 AM CDT) COPY(IES) SENT TO: [facility] Comment: [facility] LIVER - COPY TO [address] [address] 05/02/2025 05/02/2025 7:1 7 AM CDT Narrative [facility] - 05/04/2025 10:52 AM CDT FASTING:YES FASTING: YES Boston Velasquez MD LAB BLOOD ORDERABLES Final Result [facility] * [id number], Tumor Marker (05/02/2025 12:00 AM CDT) alpha Fetoprotein, tumor marker 4.4 <6.1 ng/mL [facility] [place] Comment: This test was performed using the Bre Carine chemiluminescent method. Values obtained from different assay methods cannot be used interchangeably. AFP levels, regardless of value, should not be interpreted as absolute evidence of the presence or absence of disease. 05/02/2025 05/02/2025 7:1 7 AM CDT Narrative [facility] - 05/04/2025 10:52 AM CDT FASTING:YES FASTING: YES us Boston Velasquez MD LAB BLOOD ORDERABLES Final Result [facility] [address] [place] [address] * MRI Abdomen Liver W WO Contrast (03/29/2025 11:01 AM CDT) Anatomical Region Laterality Modality Body N/A Magnetic Resonan ce 03/29/2025 1:40 PM CDT Impressions 03/29/2025 3:31 PM CDT 1. Stable segment 8 LR-3 lesion without new liver lesion. 2. Expected postoperative changes from liver transplantation. Dictated by: Peng Mcgovern MD The radiology attending physician has personally reviewed this study, and had reviewed and/or edited this written report and agrees with it. Electronically signed by: Benito Norman M.D. Narrative 03/29/2025 3:31 PM CDT EXAMINATION: MAGNETIC RESONANCE IMAGING OF THE ABDOMEN WITH AND WITHOUT CONTRAST HISTORY: Cirrhosis and hepatocellular carcinoma status post liver transplantation in 2019 TECHNIQUE: Magnetic resonance imaging of the abdomen was performed prior to and following the uneventful administration of intravenous Gadolinium contrast. Protocol: Liver Contrast: gadoterate 18 mL COMPARISON: 09/21/2024 FINDINGS: Liver: Postoperative changes from liver transplantation - Bile ducts: Expected postoperative appearance of the biliary ducts - Focal liver lesions: Lesion 1: Location: Segment 8, series 32, image 21 Size: 0.6 cm Imaging features: Arterial hyperenhancement without pseudocapsule, diffusion restriction, or other ancillary features of malignancy/hepatocellular carcinoma. No change in size from the prior. 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 Spleen: Upper limits of normal in size Adrenals: Normal Kidneys: Unchanged simple cysts Other Findings: Partially imaged postoperative changes in the right lower quadrant. No suspicious abdominal lymphadenopathy. The lung bases are clear. No aggressive osseous lesion. Procedure Note Benito Norman MD - 03/29/2025 EXAMINATION: MAGNETIC RESONANCE IMAGING OF THE ABDOMEN WITH AND WITHOUT CONTRAST HISTORY: Cirrhosis and hepatocellular carcinoma status post liver transplantation in 2019 TECHNIQUE: Magnetic resonance imaging of the abdomen was performed prior to and following the uneventful administration of intravenous Gadolinium contrast. Protocol: Liver Contrast: gadoterate 18 mL COMPARISON: 09/21/2024 FINDINGS: Liver: Postoperative changes from liver transplantation - Bile ducts: Expected postoperative appearance of the biliary ducts - Focal liver lesions: Lesion 1: Location: Segment 8, series 32, image 21 Size: 0.6 cm Imaging features: Arterial hyperenhancement without pseudocapsule, diffusion restriction, or other ancillary features of malignancy/hepatocellular carcinoma. No change in size from the prior. 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 Spleen: Upper limits of normal in size Adrenals: Normal Kidneys: Unchanged simple cysts Other Findings: Partially imaged postoperative changes in the right lower quadrant. No suspicious abdominal lymphadenopathy. The lung bases are clear. No aggressive osseous lesion. IMPRESSION: 1. Stable segment 8 LR-3 lesion without new liver lesion. 2. Expected postoperative changes from liver transplantation. Dictated by: Peng Mcgovern MD The radiology attending physician has personally reviewed this study, and had reviewed and/or edited this written report and agrees with it. Electronically signed by: Benito Norman M.D. Frank Goodwin MD IM MRI PROCEDURES Fin al Result from Last 3 Months Insurance MEDICARE [facility] MEDICARE [facility] ACCESS [facility] ACCESS MEDICARE MEDICARE [facility] MEDICARE [facility] Advance Directives For more information, please contact: [phone] * Full Code (Latest Code Status on File) Date Activated Date Inactivated Comments 02/22/2019 6:09 AM 02/25/2019 8:06 PM * Full Code Date Activated Date Inactivated Comments 02/21/2019 12:38 AM 02/22/2019 6:08 AM * Full Code Date Activated Date Inactivated Comments 02/14/2019 7:53 PM 02/15/2019 8:16 PM * Full Code Date Activated Date Inactivated Comments 11/08/2018 10:11 AM 11/09/2018 12:42 PM * Full Code Date Activated Date Inactivated Comments 09/13/2018 9:14 AM 09/14/2018 4:47 PM Care Teams Principal Gifts Officer Relationship Specialty Start Date End Date Pramod Slaughter DO [address] [place] [address] PCP - General Internal Medicine 03/17/25 Kiah Esquivel MD Referring Physician Gastroenterology 01/20/19 Dorina Gayle Primary Mapping Supervisor Transplant 04/16/21 Tequila Ibarra longwall shearer operatorHydraulic Hammer Operator Hydraulic Hammer Operator 08/13/21
--- OUTSIDE RECORDS SUMMARY | 2025-06-16 13:47 | XMS_ITS | Clinical Summary ---
Author Organization [facility] Address [address] [place] [address] Care Team Providers Care Calender Tender Name Role Phone Unavailable Primary Care Provider [...]
== END 2025-06-16 13:43 | disposition home or self-care (01) ==
PROVIDERS: PCP Internal Medicine; Visit Provider Urology
DX: N20.0 Calculus of kidney (principal); N28.1 Cyst of kidney, acquired
CPT/HCPCS: 74018; 74176

== ENCOUNTER 2025-06-26 00:28 | Day surgery (SDC) | payer MEDICARE, BC, SELFPAY ==
[2025-06-20 15:33] VITALS: BMI 29.1
--- NOTE | 2025-06-20 15:54 | PC.NURSE ---
Report to the Outpatient Waiting Room, entrance under the green pavilion located off [facility], at time __2:30PM___ on date ___06/26/25__. Planned Procedure Time: ___3:30PM___.? Time changes happen often and if your time is changed the preop area will call you the afternoon before. - You and your visitor will be asked to self-screen and do not enter if you have any COVID symptoms. Please call surgeon if you need to reschedule. - A mask is optional within the hospital at this time. MAY EAT LIGHT BREAKFAST/LUNCH. NOTHING TO EAT OR DRINK AFTER 1:30PM UNTIL AFTER PROCEDURE, PER DR GARCIAS. Take only the following medications with a SIP of water on the morning of surgery: ____MORNING MEDICATION DO NOT STOP ANY OF YOUR OTHER PRESCRIPTION MEDICATIONS PRIOR TO SURGERY EXCEPT THE FOLLOWING Medications to discontinue per physician NONE Date to take last dose Please no make-up, nail vietnamese, hairspray, perfume, deodorant, or body powder the day of surgery.? No jewelry (including any body piercings) or valuables the day of surgery, leave them at home.? Please take a shower or bath the night before, or the morning of, surgery with an antibacterial soap.? Wear comfortable, loose fitting clothing.? - Jewelry must be removed prior to entering the operating room.? Rings and piercings that are not removed may be cut off. - The hospital will not accept responsibility for valuables.? - Please leave all valuables, including medications, at home the day of surgery. SHOWER OR BATH NIGHT BEFORE AND MORNING OF SURGERY PER DR GARCIAS. NO DRIVING FOR 24 HRS AFTER PROCEDURE PER DR GARCIAS. Follow any additional instructions given to you from your surgeon. Telephone instructions given to ____PATIENT and asked if any additional questions and then verbalized understanding. Patient advised to call surgeon office or pre surgery nurse liaison [phone] if any additional questions.
--- NOTE | ~2025-06-26 | XR_ITS ---
XR fluoroscopy no charge Indication: Nerve block right L2, L3, L4 and L5 TECHNIQUE: Fluoroscopy used during Nerve block right L2, L3, L4 and L5 performed by [Franki Bob MD] on 06/26/2025. 21 seconds of fluoroscopy time with 5 fluoroscopic images captured. FINDINGS: Correlate with procedure note. IMPRESSION: Fluoroscopy used during Nerve block right L2, L3, L4 and L5. Reviewed, dictated and finalized at location O.
[2025-06-26 14:38] VITALS: BP 152/66; PULSE 67; RESP 18; TEMP 36.5; O2SAT 99
--- NOTE | 2025-06-26 14:43 | WPDHPUPDATE1 ---
History and Physical Update Update Date/Time: 06/26/25 14:43 History and Physical has been reviewed, including an updated exam of the patient. There are NO changes in the patient's condition. Risks, benefits, and alternatives have been discussed and questions answered. Patient agrees to proceed with procedure.
--- NOTE | 2025-06-26 14:44 | W.PM.PROC2 ---
Procedure Note - Detailed Date of Procedure 06/26/25 Pre-op Diagnosis spondylosis lumbosacral region, chronic low back pain Post-op Diagnosis Same Procedure Performed Diagnostic Right Lumbar Medial Branch/Dorsal Ramus Blocks at L2, L3, L4, L5 Treating the right L3-4, L4-5, L5-S1 Facet Joints Under Fluoroscopic Guidance and with Contrast Control. (3 levels blocked). 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 Anesthesia Local Description of Procedure INFORMED CONSENT: Risks, benefits and alternatives to the procedure were discussed in detail with the patient who expressed explicit understanding and consent to proceed. Patient was informed verbally and in written form regarding the risks associated with the procedure including the low risk of serious infection, bleeding/bruising, allergic reaction, nerve or organ injury, paralysis, procedural site pain or discomfort, worsening pain and/or mobility, failure to treat and/or disfigurement. The patient expressed explicit understanding and consent to proceed. All materials required for the procedure were available prior to procedure start. Site and side were marked prior to procedure and confirmed in the presence of the patient. PROCEDURE IN DETAIL: The patient was brought to the procedural suite and placed in the prone position. Patient was made comfortable with use of pillows under the head/chest, hips and ankles. Skin overlying the injection site on the affected side(s) was prepared broadly with ChloraPrep applicator and draped in a sterile manner. Aseptic technique was used throughout. The endplates of the vertebral bodies at the site(s) of interest were aligned in the AP view. Ipsilateral oblique angulation was utilized to optimize visualization of the intersection between the superior articulating process and transverse process at each target site. Local anesthesia was established by infiltration with approximately 5 mL of 1% lidocaine via a 1-1/2 inch 27-gauge needle. A 25-gauge 5.0 inch Quincke spinal needle was advanced until the needle tip contacted periosteum at the target site, right L2. Lateral view was utilized to confirm the appropriate placement of the needle tip just anterior to the facet line and superior to the pedicle. In the Lateral view, 0.25 mL of Omnipaque 300 contrast medium was injected after negative aspiration for CSF, blood or other bodily fluid, showing appropriate extra-articular spread of contrast without evidence of intravascular, foraminal or intrathecal placement. A 0.5 mL solution of 0.5% PF bupivacaine was injected after negative repeat aspiration. Appropriate spread of the injectate was confirmed with washout of previously injected contrast. No parasthesias were elicited. Needle was removed completely intact without difficulty. The same exact procedure was repeated for all remaining levels on the ipsilateral side, right L3, L4, L5 medial branches/dorsal ramus, modified as necessary to accommodate for the new target location with identical findings and results and no evidence of complication. Images were saved and documented in the patient chart. Patient's skin was cleaned and sterile bandage applied. The patient tolerated the procedure well. The patient was transported to the recovery area in stable condition where they were observed for an appropriate amount of time prior to discharge, without evidence of complication. Patient was instructed on the appropriate completion of a pain diary over the next 12-24 hours. The patient was instructed to avoid excessive activity for the next 48 hours, including climbing and frequent use of stairs. Showers only for 48 hours. They were instructed not to drive or operate heavy machinery for 24 hours. They are to monitor for severe headaches, fevers, chills, night sweats, erythema/swelling at the site or any other signs of infection, bleeding/bruising, bowel or bladder changes as well as new pain, weakness or numbness in the upper or lower extremity. Should they notice these changes, they are instructed to call our office immediately or report directly to the nearest Emergency Department if no answer or if after posted office hours. COMPLICATIONS: None COMMENTS: None CONTRAST WASTED: 29.25 mL Omnipaque 300. Complications No immediate complications Condition Stable Disposition Same day [facility] Billing Surgery - Charge Forward: Surgery Billing
[2025-06-26 15:15] VITALS: BP 169/79; PULSE 62; RESP 16; O2SAT 98
[2025-06-26 15:23] VITALS: BP 168/80; PULSE 67; RESP 16; O2SAT 97
[2025-06-26 15:26] VITALS: BP 156/70; PULSE 61; RESP 16; O2SAT 95
== END 2025-06-26 15:45 | disposition home or self-care (01) ==
PROVIDERS: PCP Internal Medicine; Visit Provider Anesthesiology Pain Medicine
PROC: (CPT 64493; principal; 2025-06-26 15:30)
DX: M47.816 Spondylosis without myelopathy or radiculopathy, lumbar region (principal); M48.061 Spinal stenosis, lumbar region without neurogenic claudication; E11.9 Type 2 diabetes mellitus without complications; I10 Essential (primary) hypertension; E78.5 Hyperlipidemia, unspecified; K21.9 Gastro-esophageal reflux disease without esophagitis; E03.9 Hypothyroidism, unspecified; Z79.84 Long term (current) use of oral hypoglycemic drugs; Z98.890 Other specified postprocedural states; Z90.49 Acquired absence of other specified parts of digestive tract; Z94.4 Liver transplant status; Z82.49 Family history of ischemic heart disease and other diseases of the circulatory system
CPT/HCPCS: 64493; 64494; 64495; 82948; 99199; Q9965